=== PATIENT | male | born 1975 | race Two or more races ===

== ENCOUNTER 2020-08-22 11:03 | Outpatient (REF) | payer OTHER, SELFPAY ==
[2020-08-23 04:37] LABS: HIV AB/AG Nonreactive (Nonreactive); HIV Num 1 0.11 S/CO (0.00-0.99)
== END 2020-08-22 11:04 | disposition home or self-care (01) ==
LOC: HO.LAB 11:03
PROVIDERS: PCP Internal Medicine; Visit Provider Internal Medicine
DX: Z11.3 Encounter for screening for infections with a predominantly sexual mode of transmission (principal); Z11.4 Encounter for screening for human immunodeficiency virus [HIV]
CPT/HCPCS: 87389

== ENCOUNTER → 2020-10-29 13:09 | Outpatient (BNVA) | payer OTHER, SELFPAY | PROVIDERS: PCP Internal Medicine; Referring Provider Internal Medicine; Visit Provider Dietitian, Registered | DX: Z76.89 Persons encountering health services in other specified circumstances (principal) ==

== ENCOUNTER 2020-11-08 09:46 | Outpatient (REF) | payer OTHER, SELFPAY ==
--- NOTE | 2020-11-08 10:06 | XR_ITS ---
EXAMINATION: XR ABDOMEN COMPLETE CLINICAL INDICATION: Lower abdominal pain COMPARISON: None TECHNIQUE: 2 views of the abdomen. FINDINGS: The bowel gas pattern is normal with no evidence of ileus or obstruction. No unusual soft tissue calcifications are noted. Mild bilateral hip joint space narrowing and associated femoral acetabular marginal osteophytosis. Mild bilateral sacroiliac arthrosis. XR/XR abdomen min 2V IMPRESSION: No evidence of obstruction.
[2020-11-08 10:18] LABS: Hematocrit 47.2 % (42-52); Hemoglobin 15.2 g/dl (14.0-18.0); Mean Corpuscular HGB Conc 32.2 g/dl (31.0-36.0); Mean Corpuscular Hemoglobin 27.7 pg (27.0-33.0); Mean Corpuscular Volume 86.1 fL (80-98); Mean Platelet Volume 10.7 fL (9.4-12.4); Platelet Count 229 X10*3/uL (160-400); Red Blood Count 5.48 X10*6/uL (4.60-5.80); Red Cell Distribution Width 13.9 % (11.0-16.0); White Blood Count 7.4 X10*3/uL (4.8-10.8)
[2020-11-08 10:40] LABS: Alanine Aminotransferase 11 U/L (0-40); Albumin Level 4.3 g/dL (3.5-5.0); Alkaline Phosphatase 87 U/L (39-117); Anion Gap 10 (12-20); Aspartate Amino Transferase 13 U/L (5-37); Bilirubin Direct 0.5 mg/dL (0.0-0.5); Bilirubin Total 1.5 mg/dL (0.0-1.0); Blood Urea Nitrogen 11 mg/dL (9-16); Calcium 9.3 mg/dL (8.4-10.2); Carbon Dioxide 32 mmol/L (22-29); Chloride 102 mmol/L (96-108); Estimated Glomerular Filt Rate > 60; Glucose Random 89 mg/dL (60-115); Potassium 4.6 mmol/l (3.3-5.1); Sodium 139 mmol/L (135-145); Total Protein 7.4 g/dL (6.5-8.0)
[2020-11-08 10:58] LABS: Glucose Urine UA NEG (NEG); Leukocyte Esterase Urine NEG (NEG); Nitrite Urine NEG (NEG); PH 5.5 (5.0-8.0); Specific Gravity - Urine >= 1.030 (1.005-1.025); Urine Blood TRACE (NEG); Urine Ketones NEG (NEG); Urine Protein NEG (NEG-TRACE)
[2020-11-08 10:59] LABS: Appearance Urine HAZY; Color Urine YELLOW
[2020-11-08 11:12] LABS: RBC Urine 0-2 /HPF (0); WBC Urine 0 /HPF (0-4)
== END 2020-11-08 09:47 | disposition home or self-care (01) ==
LOC: HO.LAB 09:46
PROVIDERS: PCP Internal Medicine; Visit Provider Physician Assistant
DX: R10.30 Lower abdominal pain, unspecified (principal); I10 Essential (primary) hypertension
CPT/HCPCS: 36415; 74019; 80048; 80076; 81001; 85027

== ENCOUNTER → 2020-11-12 13:54 | Outpatient (BNVA) | payer OTHER, SELFPAY | PROVIDERS: Visit Provider Orthopaedic Surgery | DX: M17.10 Unilateral primary osteoarthritis, unspecified knee (principal); M25.462 Effusion, left knee | CPT/HCPCS: 99202 ==

== ENCOUNTER → 2021-06-27 11:07 | Outpatient (BNVA) | payer OTHER, SELFPAY | PROVIDERS: PCP Internal Medicine; Referring Provider Internal Medicine; Visit Provider Internal Medicine Gastroenterology | CPT/HCPCS: Q3014 ==

== ENCOUNTER 2021-07-31 15:19 | Outpatient (REF) | payer OTHER, SELFPAY | END 2021-07-31 15:20 | disposition home or self-care (01) | LOC: HO.LAB 15:19 | PROVIDERS: PCP Internal Medicine; Visit Provider Internal Medicine | DX: Z20.822 Contact with and (suspected) exposure to COVID-19 (principal) | CPT/HCPCS: C9803; U0003; U0005 ==

== ENCOUNTER 2021-10-31 19:04 | Outpatient (REF) | payer OTHER, SELFPAY ==
[2021-10-31 20:01] LABS: Influenza A PCR NEGATIVE (Negative); Influenza B PCR NEGATIVE (Negative); Resp Syncy Virus RNA Qual PCR NEGATIVE (Negative); SARS COV2 PCR INHOUSE POSITIVE (Negative)
== END 2021-10-31 19:05 | disposition home or self-care (01) ==
LOC: HO.LNP 19:04
PROVIDERS: Visit Provider Physician Assistant Medical
DX: Z20.822 Contact with and (suspected) exposure to COVID-19 (principal); J06.9 Acute upper respiratory infection, unspecified
CPT/HCPCS: 0241U

== ENCOUNTER 2021-11-21 09:21 | Outpatient (REF) | payer OTHER, SELFPAY ==
[2021-11-21 09:51] LABS: MANUAL DIFF FLAG NO
[2021-11-21 10:09] LABS: Basophils Percent Auto 0.3 % (0-2); Eosinophils Absolute Auto 0.2 X10*3/uL (0.0-0.4); Eosinophils Percent Auto 2.2 % (0-4); Hematocrit 44.7 % (42.0-52.0); Hemoglobin 14.6 g/dl (14.0-18.0); Imm Gran Abs Auto 0.02 X10*3/uL (0.00-0.03); Imm Gran Pct Auto 0.3 % (0.0-0.4); Lymphocytes Absolute Auto 1.7 X10*3/uL (1.2-4.9); Lymphocytes Percent Auto 24.6 % (20-40); Mean Corpuscular HGB Conc 32.7 g/dl (31.0-36.0); Mean Corpuscular Hemoglobin 27.8 pg (27.0-33.0); Monocytes Absolute Auto 0.6 X10*3/uL (0.1-1.2); Monocytes Percent Auto 9.4 % (2-11); Neutrophils Absolute Auto 4.2 x10*3/uL (2.0-8.3); Neutrophils Percent Auto 63.2 % (45-73); Platelet Count 225 X10*3/uL (160-400); Red Blood Count 5.26 X10*6/uL (4.60-5.80); Red Cell Distribution Width 14.5 % (11.0-16.0); White Blood Count 6.7 X10*3/uL (4.8-10.8)
[2021-11-21 10:18] LABS: Appearance Urine CLEAR; Color Urine YELLOW; Glucose Urine UA NEG (NEG); Leukocyte Esterase Urine NEG (NEG); Nitrite Urine NEG (NEG); PH 5.5 (5.0-8.0); Specific Gravity - Urine >= 1.030 (1.005-1.025); Urine Blood NEG (NEG); Urine Ketones NEG (NEG); Urine Protein NEG (NEG-TRACE)
[2021-11-21 10:38] LABS: Alanine Aminotransferase 24 U/L (0-40); Alkaline Phosphatase 90 U/L (39-117); Anion Gap 11 (12-20); Aspartate Amino Transferase 19 U/L (5-37); Bilirubin Total 1.1 mg/dL (0.0-1.0); Blood Urea Nitrogen 11 mg/dL (9-16); Calcium 9.4 mg/dL (8.4-10.2); Carbon Dioxide 27 mmol/L (22-29); Chloride 108 mmol/L (96-108); Cholesterol 194 mg/dL; Estimated Glomerular Filt Rate > 60; Glucose Random 96 mg/dL (60-115); HDL Cholesterol 29 mg/dL; LDL Cholesterol Calculated 113 mg/dl; Potassium 4.6 mmol/L (3.3-5.1); Sodium 141 mmol/L (135-145); Total Protein 6.9 g/dL (6.5-8.0); Triglycerides 260 mg/dL
[2021-11-21 11:01] LABS: Free T4 (Free Thyroxine) 0.92 ng/dL (0.71-1.85); Thyroid Stimulating Hormone 0.97 uIU/mL (0.32-4.0)
[2021-11-21 11:11] LABS: Bacteria Urine TRACE /LPF; Squamous Epithelial Cell Urine TRACE /LPF
[2021-11-21 11:12] LABS: RBC Urine 0 /HPF (0); WBC Urine 0-2 /HPF (0-4)
[2021-11-21 11:13] LABS: Folate 15.2 ng/mL (> or = 4.0); Vitamin B12 303 pg/mL (200-900)
== END 2021-11-21 09:22 | disposition home or self-care (01) ==
LOC: HO.LAB 09:21
PROVIDERS: PCP Internal Medicine; Visit Provider Internal Medicine
DX: R55 Syncope and collapse (principal); E78.00 Pure hypercholesterolemia, unspecified
CPT/HCPCS: 36415; 80053; 80061; 81001; 82607; 82746; 84439; 84443; 85025

== ENCOUNTER 2022-05-27 08:31 | Outpatient (REF) | payer OTHER, SELFPAY ==
[2022-05-27 08:48] LABS: MANUAL DIFF FLAG NO
[2022-05-27 08:57] LABS: Basophils Percent Auto 0.3 % (0-2); Eosinophils Absolute Auto 0.2 X10*3/uL (0.0-0.4); Eosinophils Percent Auto 3.1 % (0-4); Hematocrit 45.3 % (42.0-52.0); Hemoglobin 14.7 g/dl (14.0-18.0); Imm Gran Abs Auto 0.01 X10*3/uL (0.00-0.03); Imm Gran Pct Auto 0.1 % (0.0-0.4); Lymphocytes Absolute Auto 2.1 X10*3/uL (1.2-4.9); Lymphocytes Percent Auto 28.3 % (20-40); Mean Corpuscular HGB Conc 32.5 g/dl (31.0-36.0); Mean Corpuscular Hemoglobin 27.4 pg (27.0-33.0); Mean Corpuscular Volume 84.5 fL (80.0-98.0); Mean Platelet Volume 11.4 fL (9.4-12.4); Monocytes Absolute Auto 0.7 X10*3/uL (0.1-1.2); Monocytes Percent Auto 9.3 % (2-11); Neutrophils Absolute Auto 4.3 x10*3/uL (2.0-8.3); Neutrophils Percent Auto 58.9 % (45-73); Platelet Count 194 X10*3/uL (160-400); Red Blood Count 5.36 X10*6/uL (4.60-5.80); Red Cell Distribution Width 14.7 % (11.0-16.0); White Blood Count 7.3 X10*3/uL (4.8-10.8)
[2022-05-27 09:10] LABS: Alanine Aminotransferase 16 U/L (0-40); Albumin Level 4.3 g/dL (3.5-5.0); Alkaline Phosphatase 91 U/L (39-117); Amylase 63 U/L (28-100); Anion Gap 11 (12-20); Aspartate Amino Transferase 15 U/L (5-37); Bilirubin Total 1.1 mg/dL (0.0-1.0); Blood Urea Nitrogen 13 mg/dL (9-16); Carbon Dioxide 29 mmol/L (22-29); Chloride 107 mmol/L (96-108); Cholesterol 189 mg/dL; Estimated Glomerular Filt Rate > 60; Glucose Random 98 mg/dL (60-115); HDL Cholesterol 33 mg/dL; LDL Cholesterol Calculated 106 mg/dl; Lipase 12 U/L (8-78); Potassium 4.6 mmol/L (3.3-5.1); Sodium 142 mmol/L (135-145); Total Protein 7.2 g/dL (6.5-8.0); Triglycerides 254 mg/dL
[2022-05-27 09:29] LABS: Free T4 (Free Thyroxine) 1.02 ng/dL (0.71-1.85); Thyroid Stimulating Hormone 1.94 uIU/mL (0.32-4.0)
[2022-05-27 09:57] LABS: Folate 15.8 ng/mL (> or = 4.0)
[2022-05-27 10:41] LABS: Vitamin B12 281 pg/mL (200-900)
== END 2022-05-27 08:32 | disposition home or self-care (01) ==
LOC: HO.LAB 08:31
PROVIDERS: PCP Internal Medicine; Visit Provider Internal Medicine
DX: E78.2 Mixed hyperlipidemia (principal); E78.00 Pure hypercholesterolemia, unspecified
CPT/HCPCS: 36415; 80053; 80061; 82150; 82607; 82746; 83690; 84439; 84443; 85025

== ENCOUNTER → 2022-06-30 10:48 | Outpatient (BNVA) | payer OTHER, SELFPAY | PROVIDERS: PCP Internal Medicine; Visit Provider Internal Medicine Gastroenterology | DX: K57.90 Diverticulosis of intestine, part unspecified, without perforation or abscess without bleeding (principal); R79.89 Other specified abnormal findings of blood chemistry; R10.30 Lower abdominal pain, unspecified; R10.9 Unspecified abdominal pain; R17 Unspecified jaundice; Z87.19 Personal history of other diseases of the digestive system | CPT/HCPCS: 99212 ==

== ENCOUNTER 2022-07-24 09:25 | Outpatient (REF) | payer OTHER, SELFPAY ==
--- NOTE | ~2022-07-24 | US_ITS ---
EXAMINATION: US ABDOMEN COMPLETE CLINICAL INFORMATION: Elevated LFTs. COMPARISON: X-ray abdomen 11/08/2020. CT abdomen and pelvis 11/01/2019. Ultrasound abdomen 10/12/2019 and 03/15/2018. TECHNIQUE: Real-time imaging of the abdominal viscera. Technically difficult study secondary to bowel gas and body habitus. FINDINGS: PANCREAS: Largely obscured by overlapping bowel gas. ABDOMINAL AORTA: The proximal, mid, and distal segments are normal in caliber. INFERIOR VENA CAVA: Visualized portions are normal. LIVER: Imaging limited by overlapping bowel gas. The liver is normal in size. The liver contour is normal. There is diffuse increased liver parenchymal echogenicity. No focal hepatic lesion. There is no intrahepatic biliary duct dilatation seen. GALLBLADDER: Surgically absent. COMMON BILE DUCT: Normal in caliber measuring 0.3 cm in diameter. RIGHT KIDNEY: Normal. No hydronephrosis. No renal calculi or focal parenchymal lesions. The kidney measures 12.1 cm in maximum dimension. LEFT KIDNEY: Normal. No hydronephrosis. No renal calculi or focal parenchymal lesions. The kidney measures 10.8 cm in maximum dimension. SPLEEN: No focal finding. The spleen measures 13.5 cm in maximum dimension. FREE FLUID: None. US/US abdomen complete IMPRESSION: 1. There is generalized increase in hepatic echotexture, consistent with fatty infiltration or hepatocellular disease. Please correlate clinically. No focal hepatic mass or intrahepatic biliary dilatation is seen. 2. There is mild splenomegaly. 3. The gallbladder is surgically absent. 4. Technically limited ultrasound examination, in particular of the pancreas.
== END 2022-07-24 09:26 | disposition home or self-care (01) ==
LOC: HO.US 09:25
PROVIDERS: Visit Provider Internal Medicine
DX: R10.9 Unspecified abdominal pain (principal); R79.89 Other specified abnormal findings of blood chemistry
CPT/HCPCS: 76700

== ENCOUNTER → 2022-08-18 10:59 | Outpatient (BNVA) | payer OTHER, SELFPAY | PROVIDERS: PCP Internal Medicine; Visit Provider Dietitian, Registered | DX: E78.00 Pure hypercholesterolemia, unspecified (principal); E66.9 Obesity, unspecified | CPT/HCPCS: 97803 ==

== ENCOUNTER → 2022-09-04 12:59 | Outpatient (BNVA) | payer OTHER, SELFPAY | PROVIDERS: PCP Internal Medicine; Visit Provider Internal Medicine Gastroenterology | DX: K76.0 Fatty (change of) liver, not elsewhere classified (principal); R17 Unspecified jaundice; K57.90 Diverticulosis of intestine, part unspecified, without perforation or abscess without bleeding; R10.84 Generalized abdominal pain; K59.09 Other constipation; Z87.19 Personal history of other diseases of the digestive system; Z80.0 Family history of malignant neoplasm of digestive organs | CPT/HCPCS: 99212 ==

== ENCOUNTER 2022-09-05 09:47 | Outpatient (REF) | payer OTHER, SELFPAY ==
[2022-09-05 10:34] LABS: Hematocrit 43.9 % (42.0-52.0); Hemoglobin 14.6 g/dl (14.0-18.0); Mean Corpuscular HGB Conc 33.3 g/dl (31.0-36.0); Mean Corpuscular Hemoglobin 28.2 pg (27.0-33.0); Mean Corpuscular Volume 84.7 fL (80.0-98.0); Mean Platelet Volume 11.1 fL (9.4-12.4); Platelet Count 204 X10*3/uL (160-400); Red Blood Count 5.18 X10*6/uL (4.60-5.80); Red Cell Distribution Width 14.5 % (11.0-16.0); White Blood Count 5.2 X10*3/uL (4.8-10.8)
[2022-09-05 10:51] LABS: INTERNATIONAL NORM RATIO 1.1 (0.9-1.1); Prothrombin Time 12.2 SEC (10.0-13.1)
[2022-09-05 11:24] LABS: Blood Urea Nitrogen 9 mg/dL (9-16); Estimated Glomerular Filt Rate > 60
[2022-09-12 00:26] LABS: FIB-ALT 16 U/L (9-46); FIB-Alpha-2-Macroglobulin 147 mg/dL (106-279); FIB-Apolipoprotein A1 114 mg/dL (94-176); FIB-GGT 8 U/L (3-95); FIB-Haptoglobin 146 mg/dL (43-212); FIB-Total Bilirubin 1.1 mg/dL (0.2-1.2); Liver Fibrosis Score 0.16; Liver Fibrosis Stage F0; Nec Inflam Act Grade A0; Nec Inflam Act Score 0.05
== END 2022-09-05 09:48 | disposition home or self-care (01) ==
LOC: HO.LAB 09:47
PROVIDERS: PCP Internal Medicine; Visit Provider Internal Medicine Gastroenterology
DX: R10.84 Generalized abdominal pain (principal); K76.0 Fatty (change of) liver, not elsewhere classified; Z80.0 Family history of malignant neoplasm of digestive organs
CPT/HCPCS: 36415; 81596; 82565; 84520; 85027; 85610

== ENCOUNTER 2022-10-08 13:51 | Outpatient (REF) | payer OTHER, SELFPAY ==
--- NOTE | ~2022-10-08 | CT_ITS ---
EXAMINATION: CT ABDOMEN AND PELVIS WITH CONTRAST CLINICAL INFORMATION: Generalized abdominal pain COMPARISON: Abdominal ultrasound July 24, [address] abdomen pelvis November 01, 2019 TECHNIQUE: Multidetector volumetric images were obtained from the superior aspect of the liver through the pubic symphysis following administration 85 mL of Omnipaque 350 intravenous contrast. Sagittal and coronal reformatted images were obtained on the technologist's workstation. This CT examination was performed using dose optimization techniques as appropriate, variously including the following: *Automated exposure control *Adjustment of mA and/or kV according to patient size (this includes techniques or standardized protocols for targeted exams where dose is matched to indication/reason for exam; i.e. extremities or head) *Use of iterative reconstruction technique DLP: 1022 mGy-cm FINDINGS: Visualized lung bases are well aerated. The liver demonstrates normal size, contour and attenuation. The gallbladder is surgically absent. The pancreas, spleen and adrenal glands are unremarkable. Symmetrically enhancing kidneys. No hydronephrosis of either kidney. Subcentimeter hypodense focus off the lower pole of the right kidney is stable but too small to accurately characterize. Normal caliber loops of small and large bowel. Normal appendix. Mild colonic diverticulosis without CT evidence to suggest active diverticulitis. Normal caliber abdominal aorta. No retroperitoneal lymphadenopathy. The bladder is normal in appearance. The prostate gland is normal in size. No gross free pelvic fluid. No acute osseous abnormality. CT/CT abdomen pelvis w IV con IMPRESSION: 1. No CT evidence for acute abnormality within the abdomen or pelvis. 2. Mild colonic diverticulosis without CT evidence to suggest active diverticulitis. Fleischner guidelines were followed.
[2022-10-08] MEDS: iohexoL 350 MG/ML 100 ML INFUS..BTL IV (17:06)
[2022-10-08] MEDS: Barium Sulfate Oral (Berry) 450 ML ORAL.SUSP 900 ML PO (17:07)
== END 2022-10-08 13:52 | disposition home or self-care (01) ==
LOC: HO.CT 13:51
PROVIDERS: PCP Internal Medicine; Visit Provider Internal Medicine Gastroenterology
DX: R10.84 Generalized abdominal pain (principal); Z80.0 Family history of malignant neoplasm of digestive organs
CPT/HCPCS: 74177; Q9967

== ENCOUNTER → 2023-01-01 10:32 | Outpatient (BNVA) | payer OTHER, SELFPAY | PROVIDERS: PCP Internal Medicine; Visit Provider Internal Medicine Gastroenterology | DX: K57.90 Diverticulosis of intestine, part unspecified, without perforation or abscess without bleeding (principal); R17 Unspecified jaundice; R79.89 Other specified abnormal findings of blood chemistry; R10.13 Epigastric pain; R10.30 Lower abdominal pain, unspecified; K76.0 Fatty (change of) liver, not elsewhere classified | CPT/HCPCS: 99212 ==

== ENCOUNTER 2023-01-06 11:48 | Outpatient (REF) | payer OTHER, SELFPAY ==
[2023-01-06 12:32] LABS: Hemoglobin 13.8 g/dl (14.0-18.0); Mean Corpuscular HGB Conc 32.9 g/dl (31.0-36.0); Mean Corpuscular Hemoglobin 28.2 pg (27.0-33.0); Mean Corpuscular Volume 85.9 fL (80.0-98.0); Mean Platelet Volume 11.1 fL (9.4-12.4); Platelet Count 215 X10*3/uL (160-400); Red Blood Count 4.89 X10*6/uL (4.60-5.80); Red Cell Distribution Width 15.2 % (11.0-16.0); White Blood Count 6.6 X10*3/uL (4.8-10.8)
[2023-01-06 13:37] LABS: Alanine Aminotransferase 14 U/L (0-40); Albumin Level 3.9 g/dL (3.5-5.0); Alkaline Phosphatase 92 U/L (39-117); Aspartate Amino Transferase 16 U/L (5-37); Bilirubin Direct 0.3 mg/dL (0.0-0.5); Bilirubin Total 1.1 mg/dL (0.0-1.0); C Reactive Protein 0.17 mg/dL (< or = 0.50); Lipase 16 U/L (8-78); Total Protein 6.5 g/dL (6.5-8.0)
== END 2023-01-06 11:49 | disposition home or self-care (01) ==
LOC: HO.LAB 11:48
PROVIDERS: PCP Internal Medicine; Visit Provider Internal Medicine Gastroenterology
DX: R79.89 Other specified abnormal findings of blood chemistry (principal)
CPT/HCPCS: 36415; 80076; 83690; 85027; 86140

== ENCOUNTER → 2023-02-13 09:19 | Outpatient (BNVA) | payer OTHER, SELFPAY | PROVIDERS: PCP Internal Medicine; Visit Provider Dietitian, Registered | DX: E78.00 Pure hypercholesterolemia, unspecified (principal); E66.9 Obesity, unspecified; Z68.31 Body mass index [BMI] 31.0-31.9, adult; Z71.3 Dietary counseling and surveillance | CPT/HCPCS: 97803 ==

== ENCOUNTER 2023-06-10 11:00 | Outpatient (RCR) | payer OTHER, SELFPAY ==
--- NOTE | 2023-05-22 11:50 | MHC.PT.EP ---
[facility] Office [place] Office [place] Office [address] Leobardo Cruz [address] [phone] F: [phone] F: [phone] F: [phone] F: [phone] Physical Therapy Plan of Care Date of Evaluation: Date of Surgery: Diagnosis: This is a 48 yo male presenting to skilled PT with a script for pain in R lower leg and foot. Assessment: This is a 48 yo male presenting to skilled PT with a script for pain in R lower leg and foot. Patient presented to the walk-in at the beginning of April with pain in the right foot and and gastroc ongoing then for 2-3 weeks. He also noted pain starting in the left side as well. He notes rest makes it better and is worse at the end of the day after being on his feet. Denies new activities however did go to [place] and increased his walking which was when he noticed an increase in symptoms. Today he presents reporting that his pain has been improving since then. His pain is located at the heel mainly (he was having anterior lower leg symptoms before). Pain is described as stabbing and increases with walking but can be at rest as well. His pain still increases throughout the day and is worse at night. He has a history of lumbar issues however states that this feels different. Assessment reveals pain that ranges from a 4-8/10. Patient demos decreased BLE ROM and strength, impaired gait pattern with antalgic gait, increased toe extension, B hip ER and lateral sway, self reported decreased balance due to LE, TTP at gastroc and PF and decreased functional tolerance for wbing activites, transfers and ADLs. Based on functional limitations, impaired QOL and pain tolerance patient is a good candidate for skilled PT 2x/wk for 4wks. Frequency and Duration: The patient will be seen 2x/wk for 4 wks Short Term Goals: (in 2 weeks) I in HEP Improve gastroc length by at least 5 degs Demo good understanding of self tissue release at home and be compliant [facility] Goals: (in 4 wks) Improve pain to no more than 2/10 Improve gastroc length equal B Report no pain with walking Demo normal gait on stairs with reciprocal gait and no pain Improve Lefs by 10 points Treatment Plan: Modalities to reduce pain, spasms and effusion. Manual therapy to restore motion and function. Therapeutic exercise to improve strength and flexibility. Neuromuscular re-education for posture and balance. Therapeutic activities to return to functional activities of daily living. Electronically signed by: Carolynn Rivera PT Please sign and return to therapist. Thank you for your referral.
--- NOTE | 2023-06-19 11:56 | MHC.PT.DC ---
[facility] [place] Office [place] Office [place] Office [address] Leobardo Cruz [address] [phone] F: [phone] F: [phone] F: [phone] F: [phone] Physical Therapy Discharge Report Diagnosis: This is a 48 yo male presenting to skilled PT with a script for pain in R lower leg and foot. Date of Surgery: Date of Evaluation: 05/22/23 Date of Discharge: 06/19/23 Treatments to Date: 5 Cancellations to Date: 0 No Shows to Date: 0 Discharge Status: Achieved Goals Improved Function Independent with HEP Patient Elected to Stop Discharge Summary: Patient came to 5 visits of PT. He has a good HEP to continue on his own and I also educated him on different referral options for mild residual soreness. No pain was reported throughout the last session, good gait pattern noted. He called to self DC as he feels much better and is ready for management on his own. Electronically signed by: Carolynn Rivera, PT Please sign and return to therapist. Thank you for your referral.
== END 2023-06-19 11:56 | disposition home or self-care (01) ==
LOC: HO.PTCHIC 11:00
PROVIDERS: PCP Internal Medicine; Visit Provider Physician Assistant
DX: M79.661 Pain in right lower leg (principal); M79.671 Pain in right foot
CPT/HCPCS: 97110; 97140; 97162

== ENCOUNTER 2023-07-10 11:56 | Outpatient (AMB) | payer OTHER, SELFPAY ==
[2023-07-10 12:05] VITALS: BP 104/65; PULSE 69; BMI 31.3
--- NOTE | 2023-07-10 12:05 | MHC.OFFVIS ---
Intake Vital Signs 07/10/23 12:05 Height 5 ft 9 in Weight 212 lb 1.355 oz BMI 31.3 BP 104/65 Blood Pressure Location Rt brachial Position Sitting Pulse 69 Intake Visit Reasons: 6 month follow up Intake Note: Patient follow up for 6 months follow up of diverticulosis. CC: Patient reports he went to [facility] on 07/06 with RUQ abdominal pain. He states RUQ abdominal pain is constant and also reports constipation. Patient states he has occasional abdominal burning and itching. Supervisor Treating And Pumping Required: No Accompanied by: Self / Same As Patient Allergies No Known Allergies Allergy (Verified 07/10/23 12:06) Medication List - Last Reconciled 07/10/23 by Brennen Godfrey MD cyclobenzaprine 5 mg PO BEDTIME PRN naproxen 500 mg PO BID 15 days omega-3 fatty acids 1,000 mg PO DAILY vitamin E (dl, acetate) 180 mg PO DAILY HPI 6 month follow up HPI Details GI CLINIC visit for this 48 YM followed in GI for LLQ pain and diverticulosis. ?CHRONIC? ILLNESSES:?obesity, chronic back pain, on disability, hypercholesterolemia,? carpal tunnal syndrome - bilateral, fatty liver, renal calculus 03/2018,? diverticulitis - 2014, vitamin D deficiency, HX of constipation, DDD (? degenerative disc disease ), Allergic rhinitis, vision impairment ?[facility] reviewed, Cr 0.84. Elevated LFTs with total bilirubin of? 1.1, AST 15, ALT 12, alkaline phosphatase 98.? 06/2019 Hepatitis a B? and C serologies were negative. Repeat LFTs on 11/16/2019 were normal except? total bilirubin of 1.1.? Serologies for celiac sprue were negative in? June 2019 ?IMAGING STUDIES:?10/08/[address] SCAN SHOWED: 1.? No CT evidence for acute abnormality within the abdomen or pelvis. 2.? Mild colonic diverticulosis without CT evidence to suggest active diverticulitis. 07/2022 ABD US SHOWED: 1. There is generalized increase in hepatic echotexture, consistent with fatty infiltration or hepatocellular disease. Please correlate clinically. No focal hepatic mass or intrahepatic biliary dilatation is seen. ?2. There is mild splenomegaly. ?3. The gallbladder is surgically absent. ?4. Technically limited ultrasound examination, in particular of the pancreas. 11/01/[address] scan showed? Diverticulosis. No evidence of diverticulitis. Stable probable small right renal? cyst. ENDOSCOPIC STUDIES:? 08/2019 COLONOSCOPY SHOWED: No polyps were detected. Random biopsies were obtained to check for microscopic colitis - NORMAL. Moderate to severe diverticulosis seen in the left colon Moderate hemorrhoids on retroflexed exam. Plan:? Repeat Colonoscopy interval based on path results ? in 3-5 years if polyps are adenomatous and 10 years if polyps are hyperplastic. TODAY'S VISIT CC: Patient reports he went to [facility] on 07/06 with RUQ abdominal pain. He states RUQ abdominal pain is constant and also reports constipation. Patient states he has occasional abdominal burning and itching. Offered pain pills for pain and patient declined. Continues to have RUQ pain Pt had Lasagnia before the pain started. He was taking the powder with mild improvement - not significant Minimal improvement in pain after he has a bowel movement. Abd CT results reviewed. Continues to have intermittent rt sided abdominal pain/weird feeling in the abdomen - sometimes radiates to the left side. Feels better when he empties himself. Has not tried taking the Miralax yet. ? ? abd pain is associated with ?intake of fried foods ? Notes?generalized abdominal pain. Intermittent and sometimes can last a whole day Can have lower abdominal cramping. Changed his diet and avoiding greasy and fried foods. More constipation at present - has a BM once a day with mild straining. Had diarrhea a few weeks ago. Drinking herbal teas Has been loosing wt due to a change in his diet. Started taking Vitamin E for Fatty liver on advice of airways operations specialist. Mom recently of pancreatic cancer at age 68 yrs. PAST VISIT: Lab results reviewed with the pt. Scheduled for abd US on 07/24/22. Denies heartburn or dysphagia. Denies frequent abdominal pain - mostly if he takes any foods with seeds Complains of constipation - resolves when he takes oatmeal Mom with metastatic pancreatic cancer end of May at age 68 yrs. He took car of her Mom when she was ill Denies known FH of pancreatic cancer, colon polyps or GI malignancy Did not get the COVID vaccine yet and planning to get it ? Not against it. Lab results reviewed - LFTs normal except bilirubing of 1.5 ? Gained a few lbs - weighs 215 lbs (lost 10 lbs over the past 1.5 yrs) ?Doing pretty good. ? Notes? intermittent mild LLQ pain which comes and comes related to what he eats a few? times a week. ?Sometimes can have abd pain with? oatmeal. ?Trying to eat more vegetables which can cause gas - does not? eat grease. ?BM vary between constipation, normal BM and loose? stools. ?Gets diarrhea and abdominal pain if he takes a fibre? supplement. ?weight fluctuates between 218 to 219? lbs. ?Admitted to [facility] [place] [place] with fever, chills and a dark? urine. ?PAST GI HISTORY BY REVIEW OF MEDICAL RECORDS: ?Last? seen on 09/02/20: ?Assessments ?1. Diverticulosis - K57.90? (Primary) ?2. LLQ abdominal pain - R10.32 ?3. Colon cancer? screening - Z12.11 ?44-year-old male with obesity, chronic back pain,? on disability, hypercholesterolemia, carpal tunnal syndrome - bilateral, fatty? liver, renal calculus 03/2018, diverticulitis - 2014, vitamin D deficiency, HX of? constipation, DDD ( degenerative disc disease ), Allergic rhinitis, vision? impairment. Patient was referred to the GI clinic for evaluation of generalized? abdominal pain. He was diagnosed with the acute diverticulitis a few months ago? and was treated with antibiotics. Patient also complains of constipation? alternating with diarrhea with urgency. His symptoms are suggestive of IBS with? diarrhea and constipation. A serologies for celiac sprue were? negative ?Patient was advised to continue using a fiber supplement 1-2? times daily. ?08/20 Colonoscopy showed diverticulosis and hemorrhoids? and no polyps were detected. Random biopsies obtained from the colon were? normal. Of note past colonoscopy in 09/[address] Shaw showed? diverticulosis and hemorrhoids. ?Treatment ?1.? Diverticulosis ?Notes: Patient education: High-fiber diet (Beyond the? Basics). ?2. Colon cancer screening ?Notes: 08/2019? colonoscopy showed diverticulosis and hemorrhoids and no polyps were detected.? Patient denies note family history of colon polyps or cancer. Repeat colonoscopy? is advised in 10 years. ?. ?Follow Up ?3- 4 Months? (Reason: FU of LLQ pain and diverticulosis PFSH Medical History Low back pain Dyspepsia Generalized abdominal pain Elevated bilirubin Mixed hyperlipidemia Right-sided abdominal pain of unknown etiology Syncope COVID-19 vaccine dose not administered Viral illness Elevated LFTs H/O diverticulitis of colon Lower abdominal pain Erectile dysfunction Lumbar degenerative disc disease Carpal tunnel syndrome Hypercholesterolemia Fatty liver Diverticular disease Renal calculus Obesity (BMI 30-39.9) Vitamin D deficiency Sexually transmitted disease exposure Surgical History History of cholecystectomy Family History Father No problems noted. Mother Pancreatic cancer Social History Housing: Apartment Alcohol intake: never Patient Tobacco Use Status: Never used Tobacco e-Cigarette/Vaping Use: Never Used Second Hand Smoke Exposure: No Current occupational status: unemployed Cognitive needs: No Hearing needs: No Vision needs: Yes Review of Systems Const All systems reviewed & are unremarkable except as noted in HPI and below Physical Exam Vital Signs: Last Vital Signs Pulse 69 07/10/23 12:05 BP 104/65 07/10/23 12:05 BMI result Body Mass Index 31.3 Const General: healthy appearing and no acute distress Nutritional Appearance: obese Orientation/consciousness: patient oriented x3 Limitations: no limitations HEENT Head: Yes normal to inspection Ears: hearing grossly normal bilaterally Eyes Sclerae: sclerae normal Pupils: Equal, round and reactive pupils present Neck Neck: Yes normal visual inspection Chest Chest palpation & inspection: normal inspection of the chest Resp Effort & Inspection: normal respiratory effort Auscultation: clear to auscultation bilaterally Cardio Palpation: normal PMI Rate: regular rate Rhythm: regular rhythm Heart sounds: S1 normal heart sound present, S2 normal heart sound present and no murmurs GI Palpation (GI): Soft to palpation, nontender and No hepatosplenomegaly present Auscultation: normal bowel sounds Rectal Exam - Male: Yes deferred Skin General skin exam: no rashes or lesions noted Neuro General: patient oriented x3, gait normal and moves all extremities Cranial nerves: Yes Equal, round and reactive pupils present Psych Appearance: grossly normal Mental Status: mental status grossly normal Assessment & Plan Assessment & Plan (1) Diverticular disease: Comment: Diverticulitis May 2019 Code(s): K57.90 - Diverticulosis of intestine, part unspecified, without perforation or abscess without bleeding (2) Fatty liver: Code(s): K76.0 - Fatty (change of) liver, not elsewhere classified (3) Upper abdominal pain: Code(s): R10.10 - Upper abdominal pain, unspecified Plan 48 year-old male with obesity, chronic back pain, on disability,? hypercholesterolemia, bilateral carpal tunnal syndromel, fatty liver, renal? calculus 03/2018, diverticulitis - 2014, vitamin D deficiency, HX of? constipation, DDD ( degenerative disc disease ), Allergic rhinitis, vision? impairment. Patient was referred to the GI clinic for evaluation of generalized? abdominal pain. He was diagnosed with the acute diverticulitis and was treated with antibiotics. Patient also complains of constipation? alternating with diarrhea with urgency. His symptoms are suggestive of IBS with? diarrhea and constipation. Serologies for celiac sprue were? negative Patient was advised to continue using a fiber supplement 1-2 times? daily. Patient was seen at [facility] [place] [place] ED in 10/20 with elevated LFTs. Hepatitis a? B and C serologies were negative. Liver Fibrosis Scoreof 0.16, Liver Fibosis Stage F0 No biliary obstruction was noted on abdominal? ultrasound. LFTs were normal when rechecked on November 16 (except isolated elevation of TB). Increase in LFTs may? be related to a viral hepatitis (EBV or CMV), drug induced hepatitis or? transient biliary obstruction due to biliary sludge which resolved? spontaneously. Isolated elevation of Total Bilirubin (predominantly indirect) likely due to Gilbert's syndrome.? 10/[address] scan was negative except for diverticulosis 07/10/23 patient was advised to start omeprazole and schedule an upper endoscopy for evaluation of upper abdominal pain (scheduled on 10/09/23). FU appointment in 3 months Medications: New omeprazole 20 mg PO DAILY 30 caps 3RF 30 days R10.10 - Upper abdominal pain, unspecified Coding Level of Care Code Est Pt Level 4 (83399) Diagnoses Diverticular disease K57.90 Fatty liver K76.0 Upper abdominal pain R10.10 Time Spent (min) 21
== END 2023-07-10 12:49 | disposition home or self-care (01) ==
PROVIDERS: Visit Provider Internal Medicine Gastroenterology
DX: K57.90 Diverticulosis of intestine, part unspecified, without perforation or abscess without bleeding (principal); K76.0 Fatty (change of) liver, not elsewhere classified; R10.10 Upper abdominal pain, unspecified
CPT/HCPCS: 99214

== ENCOUNTER → 2023-07-10 11:56 | Outpatient (BNVA) | payer OTHER, SELFPAY | PROVIDERS: Visit Provider Internal Medicine Gastroenterology | DX: K57.90 Diverticulosis of intestine, part unspecified, without perforation or abscess without bleeding (principal); K76.0 Fatty (change of) liver, not elsewhere classified; R10.10 Upper abdominal pain, unspecified | CPT/HCPCS: 99212 ==

== ENCOUNTER 2024-05-20 15:55 | Outpatient (AMB) | payer OTHER, SELFPAY ==
--- NOTE | 2024-05-20 16:01 | MHC.OFFWIV ---
Intake Vital Signs 05/20/24 16:03 Height 5 ft 9 in Weight 215 lb BMI 31.7 BP 118/80 Blood Pressure Location Lt brachial Position Sitting Pulse 67 Pulse Source Pulse Oximeter Temp 98.5 F Temp Source Oral Pulse Oximetry (%) 99 Oxygen Delivery Method Room Air Intake Visit Reasons: Ep AB pain Intake Note: Pt is here c/o abdominal pain. Started about a month ago. Comes and goes intermittently. Mostly low center abdomen. Patient Tobacco Use Status: Never used Tobacco Allergies No Known Allergies Allergy (Verified 05/20/24 16:02) Do you need a note to return to daycare/school/sports/work: No HPI HPI Comments History of Present Illness Details Patient is a 49-year-old male with a past medical history of diverticulosis complaining of lower abdominal pain and constipation. He states it has been happening over the past month on an off, he states it is not bad today but today is the day he had time to come to the walk-in clinic. He states he has tried taking his dad's Metamucil. He has taken fiber pills which seems to help as well. He describes the pain as a sharp shooting pain across his lower abdomen. He denies any fevers or bloody or black stools. He states he did have a colonoscopy and it showed the diverticulosis. He states he used to have diarrhea but then he had his gallbladder out his diarrhea has been fine but he has been getting constipated recently. [facility] Medical History Low back pain Dyspepsia Generalized abdominal pain Elevated bilirubin Mixed hyperlipidemia Right-sided abdominal pain of unknown etiology Syncope COVID-19 vaccine dose not administered Viral illness Elevated LFTs H/O diverticulitis of colon Lower abdominal pain Erectile dysfunction Lumbar degenerative disc disease Carpal tunnel syndrome Hypercholesterolemia Fatty liver Diverticular disease Renal calculus Obesity (BMI 30-39.9) Vitamin D deficiency Sexually transmitted disease exposure Surgical History History of cholecystectomy Family History Father No problems noted. Mother Pancreatic cancer Social History Housing: Apartment Alcohol intake: never Patient Tobacco Use Status: Never used Tobacco e-Cigarette/Vaping Use: Never Used Second Hand Smoke Exposure: No Current occupational status: unemployed Cognitive needs: No Hearing needs: No Vision needs: Yes Review of Systems Const All systems reviewed & are unremarkable except as noted in HPI and below Physical Exam Vital Signs: BMI result Body Mass Index 31.7 Const General: cooperative, healthy appearing, comfortable, no acute distress and well developed Orientation/consciousness: patient oriented x3 Limitations: no limitations HEENT Head: Yes normal to inspection Eyes General: appearance normal, both eyes and all related structures Neck Neck: Yes normal visual inspection and Yes full ROM Resp Effort & Inspection: normal respiratory effort and able to speak in complete sentences GI Inspection: Yes normal to inspection Palpation (GI): Soft to palpation, nontender, No hepatosplenomegaly present and No Rebound tenderness present Auscultation: normal bowel sounds Skin General skin exam: no rashes or lesions noted Neuro General: patient oriented x3 Extrem General: Yes normal to inspection Results AMB Urinalysis, Automated UA Leukoctes 0 Michael/uL Last Edit by Guanaco Jiang CMA on 05/20/24 16:18 UA Nitrite Negative Last Edit by Guanaco Jiang CMA on 05/20/24 16:18 UA Urobilinogen 0.2 mg/dL Last Edit by Guanaco Jiang CMA on 05/20/24 16:18 UA Protein 0 mg/dL Last Edit by Guanaco Jiang CMA on 05/20/24 16:18 UA pH 6.0 Last Edit by Guanaco Jiang CMA on 05/20/24 16:18 UA Blood 0 Nam/uL Last Edit by Guanaco Jiang CMA on 05/20/24 16:18 UA Specific [place] 1.030 Last Edit by Guanaco Jiang CMA on 05/20/24 16:18 UA Ketone Negative Last Edit by Guanaco Jiang CMA on 05/20/24 16:18 UA Bilirubin 0 mg/dL Last Edit by Guanaco Jiang CMA on 05/20/24 16:18 UA Glucose 0 mg/dL Last Edit by Guanaco Jiang CMA on 05/20/24 16:18 Assessment & Plan Assessment & Plan (1) Constipation: Code(s): K59.00 - Constipation, unspecified Qualifiers: Constipation type: unspecified constipation type Qualified Code(s): K59.00 - Constipation, unspecified Plan: Likely constipation and gas. Recommended patient increase his fiber intake, increase his water intake. Recommended he continue using Mucinex as needed. He could also add in some simethicone or Gas-X when he has the pain. Gave him a few samples of Mucinex and recommended he follow up with his PCP if no resolution in symptoms after following this advice. Gave him red flag warning signs and when to go to the emergency department and explained the difference between diverticulitis and appendicitis, very low suspicion for either at this time. Plan see above Coding Level of Care Code Est Pt Level 3 (56475) Diagnoses Constipation, unspecified constipation type K59.00 Constipation type: unspecified constipation type
[2024-05-20 16:03] VITALS: BP 118/80; PULSE 67; TEMP 36.9; O2SAT 99; BMI 31.7
== END 2024-05-20 16:28 | disposition home or self-care (01) ==
PROVIDERS: PCP Internal Medicine; Visit Provider Physician Assistant
DX: Z13.9 Encounter for screening, unspecified (principal); K59.00 Constipation, unspecified
CPT/HCPCS: 81003; 99213

== ENCOUNTER 2024-11-28 15:48 | Emergency (ER) | payer OTHER, SELFPAY ==
--- NOTE | ~2024-11-28 | XR_ITS ---
CLINICAL HISTORY: pain 1 view abdomen Comparison: None Findings: No significant bowel distention demonstrated. No significant increased stool noted. No free air. No abnormal calcification. Surgical clips right upper quadrant. No acute bony abnormality. Impression: No significant abnormalities. This document has been electronically signed by: Brian Bhatia MD on 11/28/2024 20:13:17
[2024-11-28 16:05] VITALS: BP 114/70; PULSE 84; RESP 16; TEMP 36.9; O2SAT 97; BMI 23.1
--- NOTE | 2024-11-28 16:19 | ECG_ITS ---
Test Reason : CHEST PAIN Blood Pressure : */* mmHG Vent. Rate : 72 BPM Atrial Rate : 72 BPM P-R Int : 172 ms QRS Dur : 90 ms QT Int : 344 ms P-R-T Axes : 40 43 34 degrees QTcB Int : 376 ms Normal sinus rhythm Normal ECG When compared with ECG of 12-Oct-2019 10:16, No significant change was found Referred By: Generic ED Physician Electronically Signed By: DENISE GARZA
[2024-11-28 17:31] LABS: Appearance Urine Clear; Color Urine Dark Yellow; Glucose Urine UA Negative (Negative); Leukocyte Esterase Urine Negative (Negative); Nitrite Urine Negative (Negative); PH 5.5 (5.0-9.0); Specific Gravity - Urine >= 1.030 (1.005-1.025); UMIC TRIGGER UACC YES; Urine Blood Negative (Negative); Urine Ketones 40 mg/dL (Negative); Urine Protein 30 (1+) mg/dL (Neg-Trace)
[2024-11-28 17:33] LABS: Bacteria Urine None Seen (None Seen); Hyaline Casts Urine 0-2 /LPF (0-2); RBC Urine 0-2 /HPF (0-2); Squamous Epithelial Cell Urine 0-2 /HPF (0-2); WBC Urine 0-5 /HPF (0-5)
[2024-11-28 17:36] LABS: Basophils Percent Auto 0.1 % (0-2); Eosinophils Percent Auto 0.1 % (0-4); Hematocrit 50.5 % (42.0-52.0); Hemoglobin 16.9 g/dl (14.0-18.0); Imm Gran Abs Auto 0.05 X10*3/uL (0.00-0.03); Imm Gran Pct Auto 0.4 % (0.0-0.4); Lymphocytes Absolute Auto 0.2 X10*3/uL (1.2-4.9); Lymphocytes Percent Auto 1.5 % (20-40); MANUAL DIFF FLAG SCAN; Mean Corpuscular HGB Conc 33.5 g/dl (31.0-36.0); Mean Corpuscular Hemoglobin 28.3 pg (27.0-33.0); Mean Corpuscular Volume 84.6 fL (80.0-98.0); Monocytes Absolute Auto 0.3 X10*3/uL (0.1-1.2); Monocytes Percent Auto 2.1 % (2-11); Neutrophils Percent Auto 95.8 % (45-73); Platelet Count 220 X10*3/uL (160-400); Red Blood Count 5.97 X10*6/uL (4.60-5.80); Red Cell Distribution Width 14.6 % (11.0-16.0); SCAN SMEAR FLAG 1; White Blood Count 13.6 X10*3/uL (4.8-10.8)
[2024-11-28 17:37] LABS: Alanine Aminotransferase 26 U/L (0-40); Albumin Level 4.8 g/dL (3.5-5.0); Alkaline Phosphatase 118 U/L (39-117); Anion Gap 11 (12-20); Aspartate Amino Transferase 26 U/L (5-37); Bilirubin Total 1.6 mg/dL (0.0-1.0); Blood Urea Nitrogen 18 mg/dL (9-16); Calcium 10.1 mg/dL (8.4-10.2); Carbon Dioxide 26 mmol/L (22-29); Chloride 109 mmol/L (96-108); Creatinine Clr Calc Pharmacy 111.9; Estimated Glomerular Filt Rate > 60; Glucose Random 129 mg/dL (60-115); Potassium 4.5 mmol/L (3.3-5.1); Sodium 141 mmol/L (135-145); Total Protein 8.9 g/dL (6.5-8.0)
[2024-11-28 17:46] LABS: Troponin-I High Sensitivity < 2.7 ng/L (<3.5-35.0)
--- NOTE | 2024-11-28 17:57 | ED_ITS ---
HPI - Chest Pain General Chief Complaint: Chest Pain Stated Complaint: abd pain, n/v,dizzy Time Seen by Provider: 11/28/24 17:50 Source: patient Limitations: no limitations History of Present Illness ED Provider: Hansa Cruz PA-C HPI narrative: 49-year-old male with a history of constipation, fatty liver disease, hyperlipidemia, presents with abdominal pain since this morning. Patient is concerned he may have developed food poisoning after eating at a buffet last night. This morning, the patient developed nausea vomiting with diarrhea. Patient has had multiple episodes throughout the day, however his symptoms are improving, he has not had any active vomiting or diarrhea since noon. Associated lower abdominal cramping. Denies fever, cough cold symptoms, recent travel, recent use of antibiotics or hospitalizations. Related Data Home Medications ?Medication ?Instructions ?Recorded ?Confirmed cyclobenzaprine 5 mg tablet 5 mg PO TID PRN 05/20/24 Previous Rx's ?Medication ?Instructions ?Recorded naproxen 500 mg tablet 500 mg PO BID 15 days #30 tabs 03/30/24 Allergies Allergy/AdvReac Type Severity Reaction Status Date / Time No Known Allergies Allergy Verified 11/28/24 16:09 Review of Systems 2 Review of Systems: Yes all other systems are reviewed and are negative Constitutional: Constitutional: Denies fatigue and Denies fever(s) Cardiovascular: Cardiovascular: Denies chest pain and Denies dyspnea Respiratory: Respiratory: Denies cough and Denies dyspnea Gastrointestinal: Gastrointestinal: Reports abdominal pain, Reports diarrhea, Reports nausea and Reports vomiting Endocrine: Endocrine: Denies fatigue PMFSH Past Medical History Attestation statement: The following information was validated with the patient. Medical History Low back pain Dyspepsia Generalized abdominal pain Elevated bilirubin Mixed hyperlipidemia Right-sided abdominal pain of unknown etiology Syncope COVID-19 vaccine dose not administered Viral illness Elevated LFTs H/O diverticulitis of colon Lower abdominal pain Erectile dysfunction Lumbar degenerative disc disease Carpal tunnel syndrome Hypercholesterolemia Fatty liver Diverticular disease Renal calculus Obesity (BMI 30-39.9) Vitamin D deficiency Sexually transmitted disease exposure Surgical History History of cholecystectomy Family History Family History Father No problems noted. Mother Pancreatic cancer Social History Social History Housing: Apartment Alcohol intake: never Patient Tobacco Use Status: Never used Tobacco Smoked in Last 30 Days: No e-Cigarette/Vaping Use: Never Used Second Hand Smoke Exposure: No Use of substances other than those prescribed or required for medical reasons: Yes Advance Directives: No Advance Directives Information Provided: No Current occupational status: unemployed Cognitive needs: No Hearing needs: No Vision needs: Yes Physical Exam 2 Vital Signs: Vital Signs: Last Vital Signs Temp 98.8 F 11/28/24 19:11 Pulse 70 11/28/24 19:11 Resp 20 11/28/24 19:11 BP 122/73 11/28/24 19:11 Pulse Ox 96 11/28/24 19:11 O2 Del Method Room Air 11/28/24 19:11 BMI result Body Mass Index 23.1 Const: Other: Alert well-appearing Orientation/consciousness: patient oriented x3 Resp: Other: Nonlabored respiration Cardio: Other: Normal peripheral perfusion GI: Other: Abdomen is soft, nondistended nontender no guarding Skin: Other: Warm dry no rash Neuro: General: patient oriented x3, no focal motor deficits and CN's II-XI intact bilaterally Psych: Other: Calm cooperative Course Reevaluation(s) Reevaluation #1: Drinking, eager for discharge Medications Administered Discontinued Medications Generic Name Dose Route Start Last Admin Trade Name Reny PRN Reason Stop Dose Admin Ondansetron HCl 4 mg 11/28/24 18:14 11/28/24 18:21 Ondansetron Odt 4 Mg Tab.Rapdis TRANSLINGU 11/28/24 18:15 4 mg ONCE ONE Administration Medical Decision Making Medical Decision Making MDM Narrative: 49-year-old male with a history of constipation, fatty liver disease, hyperlipidemia, presents with abdominal pain since this morning. Patient is concerned he may have developed food poisoning after eating at a buffet last night. This morning, the patient developed nausea vomiting with diarrhea. Patient has had multiple episodes throughout the day, however his symptoms are improving, he has not had any active vomiting or diarrhea since noon. Associated lower abdominal cramping. Denies fever, cough cold symptoms, recent travel, recent use of antibiotics or hospitalizations. Problem: Constipation History: Per patient I have considered the following differential diagnoses: Constipation, viral gastroenteritis, diverticulitis, C diff, traveler's diarrhea Plan: Screening labs and a viral panel were obtained from triage, this is likely viral gastroenteritis given such illness has been prevalent within the community. His abdominal exam is benign, he does not warrant a CT scan at this time. P.o. challenge now. He still can be constipated, he has chronic constipation, we will obtain a screening KUB. I have independently reviewed the following tests: Labs: Slight leukocytosis, not anemic, no electrolyte abnormality, LFTs are at baseline, viral panel negative, urine not infected KUB: Still appears constipated...... Lab Data 11/28/24 17:16 11/28/24 17:16 Labs: Lab Results 11/28/24 11/28/24 Range/Units 17:16 17:23 WBC 13.6 H (4.8-10.8) X10*3/uL RBC 5.97 H D (4.60-5.80) X10*6/uL Hgb 16.9 D (14.0-18.0) g/dl Hct 50.5 D (42.0-52.0) % MCV 84.6 (80.0-98.0) fL MCH 28.3 (27.0-33.0) pg MCHC 33.5 (31.0-36.0) g/dl RDW 14.6 (11.0-16.0) % Plt Count 220 (160-400) X10*3/uL MPV 11.0 (9.4-12.4) fL Immature Gran % (Auto) 0.4 (0.0-0.4) % Neut % (Auto) 95.8 H (45-73) % Lymph % (Auto) 1.5 L (20-40) % [place] % (Auto) 2.1 (2-11) % Eos % (Auto) 0.1 (0-4) % Baso % (Auto) 0.1 (0-2) % Lymph # (Auto) 0.2 L (1.2-4.9) X10*3/uL [place] # (Auto) 0.3 (0.1-1.2) X10*3/uL Eos # (Auto) 0.0 (0.0-0.4) X10*3/uL Baso # (Auto) 0.0 (0.0-0.2) X10*3/uL Abs Immat Gran (auto) 0.05 H (0.00-0.03) X10*3/uL Absolute Neuts (auto) 13.0 H (2.0-8.3) x10*3/uL Absolute Nucleated RBC 0.000 (0.0-0.012) X10*3/uL Nucleated RBC % (auto) 0.0 (0.0-0.2) /100WBC Smear Tech's Comments VERIFIED Sodium 141 (135-145) mmol/L Potassium 4.5 (3.3-5.1) mmol/L Chloride 109 H (96-108) mmol/L Carbon Dioxide 26 (22-29) mmol/L Anion Gap 11 L (12-20) BUN 18 H (9-16) mg/dL Creatinine 0.89 (0.5-1.4) mg/dL Estim Creat Clear Calc 111.9 Estimated GFR > 60 Random Glucose 129 H (60-115) mg/dL Calcium 10.1 D (8.4-10.2) mg/dL Total Bilirubin 1.6 H (0.0-1.0) mg/dL AST 26 (5-37) U/L ALT 26 (0-40) U/L Alkaline Phosphatase 118 H (39-117) U/L Troponin I High Sens < 2.7 (<3.5-35.0) ng/L Total Protein 8.9 H (6.5-8.0) g/dL Albumin 4.8 (3.5-5.0) g/dL Urine Color Dark Yellow Urine Appearance Clear Urine pH 5.5 (5.0-9.0) Ur Specific [place] >= 1.030 H (1.005-1.025) Urine Protein 30 (1+) H (Neg-Trace) mg/dL Urine Glucose (UA) Negative (Negative) mg/dL Urine Ketones 40 (Negative) mg/dL Urine Blood Negative (Negative) Urine Nitrite Negative (Negative) Ur Leukocyte Esterase Negative (Negative) Urine RBC 0-2 (0-2) /HPF Urine WBC 0-5 (0-5) /HPF Ur Squamous Epith Cells 0-2 (0-2) /HPF Urine Bacteria None Seen (None Seen) Hyaline Casts 0-2 (0-2) /LPF Influenza Type A (PCR) NEGATIVE (Negative) Influenza Type B (PCR) NEGATIVE (Negative) RSV RNA Qual (PCR) NEGATIVE (Negative) SARS-CoV-2 RNA (RT-PCR) NEGATIVE (Negative) Discharge Plan Discharge Clinical Impression: Constipation Patient Disposition: Home, Self-Care Instructions: Constipation (ED) Additional Instructions: Despite the fact that you were having loose stools today, the x-ray reveals you are constipated. See home care instructions. Given you have chronic constipation, you should stay on a stool softener daily, such as Colace which can be purchased [id number]. You should also use MiraLax daily, to help regulate your bowel movements. Follow up with your primary care provider as needed. All of your screening labs were completely normal. Prescriptions: No Action naproxen 500 mg tablet 500 mg PO BID 15 Days Qty: 30 2RF cyclobenzaprine 5 mg tablet 5 mg PO TID PRN Print Language: Yakut
[2024-11-28 18:02] VITALS: BP 99/55; PULSE 75; RESP 17; TEMP 36.6; O2SAT 96
[2024-11-28 18:05] LABS: Influenza A PCR NEGATIVE (Negative); Influenza B PCR NEGATIVE (Negative); Resp Syncy Virus RNA Qual PCR NEGATIVE (Negative); SARS COV2 PCR INHOUSE NEGATIVE (Negative)
[2024-11-28 18:21] VITALS: BP 125/78; PULSE 77; RESP 16
[2024-11-28] MEDS: Ondansetron ODT 4 MG TAB.RAPDIS TRANSLINGU (18:21)
[2024-11-28 18:52] LABS: SLIDE REVIEW VERIFIED
[2024-11-28 19:11] VITALS: BP 122/73; PULSE 70; RESP 20; TEMP 37.1; O2SAT 96
--- NOTE | 2024-11-28 19:12 | MHC.EDTECH ---
This Pct assumed care of Patient at 1900 ,vitals taken ,Patient resting quietly in bed ,no apparent distress noted .
[2024-11-28 20:06] VITALS: BP 122/77; PULSE 84; RESP 14; O2SAT 99
[2024-11-28 20:28] VITALS: BP 122/77; PULSE 84; RESP 14; TEMP 36.9; O2SAT 99
== END 2024-11-28 20:29 | disposition home or self-care (01) ==
PROVIDERS: Emergency Provider Emergency Medicine; PCP Internal Medicine
DX: K59.00 Constipation, unspecified (principal); R11.2 Nausea with vomiting, unspecified; R10.30 Lower abdominal pain, unspecified; E78.5 Hyperlipidemia, unspecified; Z03.818 Encounter for observation for suspected exposure to other biological agents ruled out; Z79.899 Other long term (current) drug therapy
CPT/HCPCS: 0241U; 74018; 80053; 81001; 84484; 85025; 93005; 99283; 99285

== ENCOUNTER → 2024-11-28 16:19 | Outpatient (BNV) | payer OTHER, SELFPAY | PROVIDERS: Emergency Provider Emergency Medicine; PCP Internal Medicine; Visit Provider Internal Medicine | DX: R07.9 Chest pain, unspecified (principal) | CPT/HCPCS: 93010 ==

== ENCOUNTER → 2024-11-28 18:14 | Outpatient (BNV) | payer OTHER, SELFPAY | PROVIDERS: Emergency Provider Emergency Medicine; PCP Internal Medicine; Visit Provider Radiology Diagnostic Radiology | DX: R52 Pain, unspecified (principal) | CPT/HCPCS: 74018 ==

== ENCOUNTER 2024-12-10 10:45 | Outpatient (AMB) | payer OTHER, SELFPAY ==
[2024-12-10 10:59] VITALS: BP 100/60; PULSE 74; RESP 14; TEMP 37.3; O2SAT 95; BMI 31.6
--- NOTE | 2024-12-10 10:59 | MHC.OFFWIV ---
Intake Vital Signs 12/10/24 10:59 Height 5 ft 9 in Weight 214 lb BMI 31.6 BP 100/60 Blood Pressure Location Lt brachial Position Sitting Respiration 14 Pulse 74 Pulse Source Pulse Oximeter Temp 99.1 F Temp Source Oral Pulse Oximetry (%) 95 Oxygen Delivery Method Room Air Intake Visit Reasons: EP-sore throat, body ache, fever, chills, earache Intake Note: Pt is here today c/o sore throat, bodyaches, fever, chills and bilateral earache x4days Patient Tobacco Use Status: Never used Tobacco Allergies No Known Allergies Allergy (Verified 12/10/24 11:01) HPI EP-sore throat, body ache, fever, chills, earache HPI Details Pt is here today c/o sore throat, bodyaches, fever, chills and bilateral earache x4days PFSH Medical History Low back pain Dyspepsia Generalized abdominal pain Elevated bilirubin Mixed hyperlipidemia Right-sided abdominal pain of unknown etiology Syncope COVID-19 vaccine dose not administered Viral illness Elevated LFTs H/O diverticulitis of colon Lower abdominal pain Erectile dysfunction Lumbar degenerative disc disease Carpal tunnel syndrome Hypercholesterolemia Fatty liver Diverticular disease Renal calculus Obesity (BMI 30-39.9) Vitamin D deficiency Sexually transmitted disease exposure Surgical History History of cholecystectomy Family History Father No problems noted. Mother Pancreatic cancer Social History Housing: Apartment Alcohol intake: never Patient Tobacco Use Status: Never used Tobacco e-Cigarette/Vaping Use: Never Used Second Hand Smoke Exposure: No Current occupational status: unemployed Cognitive needs: No Hearing needs: No Vision needs: Yes Review of Systems Const All systems reviewed & are unremarkable except as noted in HPI and below Physical Exam Vital Signs: Last Vital Signs Temp 99.1 F 12/10/24 10:59 Pulse 74 12/10/24 10:59 Resp 14 12/10/24 10:59 BP 100/60 12/10/24 10:59 Pulse Ox 95 12/10/24 10:59 Oxygen Delivery Method Room Air 12/10/24 10:59 BMI result Body Mass Index 31.6 Results AMB Rapid Strep AMB Rapid Strep Negative Last Edit by Michelle Noguera CMA on 12/10/24 11:16 Results Reviewed Results Reviewed: Laboratory Last Values Strep Scn Rapid Clinic Negative 12/10/24 11:00 Assessment & Plan Assessment & Plan (1) Viral syndrome: Code(s): B34.9 - Viral infection, unspecified Plan Patient is a 49-year-old male with no underlying respiratory conditions, who comes to the walk-in clinic complaining of acute onset of chills, body aches, fatigue, cough and nasal congestion. Rapid COVID test came back negative while he was still in the office, but pending flu COVID and RSV PCR results. He does have an erythematous and injected tympanic membrane, and even though the underlying etiology is viral, I am going to start Augmentin for this, due to him being symptomatic from it. This also could be empiric treatment for a pneumonia, although a plain film two view x-ray of the chest looked unremarkable for pneumonia or acute cardiopulmonary disease on my wet read. Orders: Orders SARS-CoV2/FLU/RSV Today J06.9 - Acute upper respiratory infection, unspecified AMB Rapid Strep Screen Today Z13.9 - Encounter for screening, unspecified BinaxNOW Covid-19 Ag Today Z20.822 - Contact with and (suspected) exposure to COVID-19 XR chest 2V Today R05.9 - Cough, unspecified Medications: New amoxicillin-pot clavulanate 875-125 mg 1 tab PO BID 7 days 14 tabs 0RF benzonatate 200 mg PO BID-TID PRN 20 caps 0RF cough oseltamivir (Tamiflu) 75 mg PO BID 5 days 10 caps 0RF Coding Level of Care Code Est Pt Level 4 (85729) Diagnoses Viral syndrome B34.9
== END 2024-12-10 14:10 | disposition home or self-care (01) ==
PROVIDERS: PCP Internal Medicine; Visit Provider Physician Assistant Medical
DX: Z13.9 Encounter for screening, unspecified (principal)

== ENCOUNTER 2024-12-10 10:45 | Outpatient (REF) | payer OTHER, SELFPAY ==
--- NOTE | ~2024-12-10 | XR_ITS ---
CLINICAL HISTORY: R05.9 - Cough, unspecified 2 view chest x-ray Comparison: None Findings: No consolidation or effusion. Normal size heart. No acute fracture. IMPRESSION: No consolidation. This document has been electronically signed by: Ebenezer Ríos MD on 12/10/2024 14:44:02
[2024-12-10 14:10] LABS: Binax Internal Control QC Valid; Binax Lot number: 869104; Binax Now Covid-19 Ag Negative (Negative); Binax Performed by: HO.BONILM
[2024-12-10 16:02] LABS: Influenza A PCR POSITIVE (Negative); Influenza B PCR NEGATIVE (Negative); Resp Syncy Virus RNA Qual PCR NEGATIVE (Negative); SARS COV2 PCR INHOUSE NEGATIVE (Negative)
== END 2024-12-10 10:46 | disposition home or self-care (01) ==
LOC: HO.HMGCX 10:45
PROVIDERS: PCP Internal Medicine; Visit Provider Physician Assistant Medical
DX: B34.9 Viral infection, unspecified (principal); J06.9 Acute upper respiratory infection, unspecified; R05.9 Cough, unspecified; Z20.822 Contact with and (suspected) exposure to COVID-19
CPT/HCPCS: 0241U; 71046; 87811; 87880; 99212

== ENCOUNTER → 2024-12-10 13:12 | Outpatient (BNV) | payer OTHER, SELFPAY | PROVIDERS: PCP Internal Medicine; Visit Provider Radiology Diagnostic Radiology | DX: R05.9 Cough, unspecified (principal) | CPT/HCPCS: 71046 ==

== ENCOUNTER 2024-12-14 14:57 | Outpatient (AMB) | payer OTHER, SELFPAY ==
--- NOTE | 2024-12-14 15:02 | MHC.PC.OV ---
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 Accompanied by: Self / Same As Patient Allergies No Known Allergies Allergy (Verified 12/16/24 05:58) Medication List - Last Reconciled 12/16/24 by JAMES Mar amoxicillin-pot clavulanate 875-125 mg 1 tab PO BID 7 days benzonatate 200 mg PO BID-TID PRN omeprazole 20 mg PO DAILY 30 days oseltamivir (Tamiflu) 75 mg PO BID 5 days Tobacco use date assessed: 12/14/24 Dental Screening Dental Screen Date: 12/14/24 Did you have a dental visit in the last 12 months?: No Did you have a dental problem in the last 6 months where you did not have access to dental care?: No Was dental information given to patient?: No HPI abdomen pain HPI Details The patient is a 49-year-old male with significant past medical history of diverticular disease,Hypercholesterolemia, obesity, fatty liver, constipation The patient is presenting today with abdominal pain and burning itching all over. He reports that he went to the [facility] on Thursday and Thursday he had diarrhea. The patient then explained that at [address] scan in the past of his stomach that showed fatty liver and diverticulosis. Patient reports that he feels pressure and pain pointing towards his upper gastric region. He reports that yesterday at 18:00 he ate with supposed and that is stomach pain. He reports that he is having heartburn as well. He reports that he was prescribed omeprazole but did not start the medication. He reports that he picked up the prescription today but has not started it yet. Reports that his mother from cancer and she did not having a cancer until she was started on omeprazole. Reports that it could have been something in the medication. Patient also reports that he was scheduled to have an EGD and he missed the appointment and did not reschedule. Discussed with patient that omeprazole is widely used and that is less likely the caused of his mother pancreatic cancer Discussed with patient that he should follow up with GI to get his EGD, for this would give us more information Encouraged the patient that he does need to started the omeprazole if he is having heartburn after eating and stomach discomfort The patient also endorsed suprapubic pressure. He denies any burning when urinating, reports that he does not urinate as much. He declines STD testing, but reports that it was due and urinalysis [facility] Medical History Low back pain Dyspepsia Generalized abdominal pain Elevated bilirubin Mixed hyperlipidemia Right-sided abdominal pain of unknown etiology Syncope COVID-19 vaccine dose not administered Viral illness Elevated LFTs H/O diverticulitis of colon Lower abdominal pain Erectile dysfunction Lumbar degenerative disc disease Carpal tunnel syndrome Hypercholesterolemia Fatty liver Diverticular disease Renal calculus Obesity (BMI 30-39.9) Vitamin D deficiency Sexually transmitted disease exposure Surgical History History of cholecystectomy Family History Father No problems noted. Mother Pancreatic cancer Social History Housing: Apartment Alcohol intake: never Patient Tobacco Use Status: Never used Tobacco e-Cigarette/Vaping Use: Never Used Second Hand Smoke Exposure: No Current occupational status: unemployed Cognitive needs: No Hearing needs: No Vision needs: Yes Questionnaire PHQ-9 Over the last 2 weeks, how often have you been bothered by any of the following problems? 1. Little interest or pleasure in doing things: not at all 2. Feeling down, depressed, or hopeless: not at all 3. Trouble falling or staying asleep, or sleeping too much: not at all 4. Feeling tired or having little energy: not at all 5. Poor appetite or overeating: not at all 6. Feeling bad about yourself - or that you are a failure or have let yourself or your family down: not at all 7. Trouble concentrating on things, such as reading the newspaper or watching television: not at all 8. Moving or speaking so slowly that other people could have noticed. Or the opposite - being so fidgety or restless that you have been moving around a lot more than usual: not at all 9. Thoughts that you would be better off or of hurting yourself in some way: not at all Total score: 0 Depression Screening Interpretation: Negative Depression Screening Done: Yes 31164 - PHQ-9 Billing: Yes Source: Developed by Drs. Jeremy Kearns, Jenny Velazquez, Davion Campo and colleagues, with an educational gerber from [email or web address]. Thrive Questionnaire Date Thrive assessed: 12/14/24 I am a: Patient What is your living situation today?: I have a steady place to live Within the past 12 months, did the food you bought not last and you didn't have the money to get more?: Never true Within the past 12 months, did you worry whether your food would run out before you got money to buy more?: Never true Do you have trouble paying for medicines?: No Do you have trouble getting transportation to medical appointments?: No Do you have trouble paying your heating and electricity bill?: No Do you have trouble taking care of your child, family member or friend?: No Do you have trouble with day-to-day activities such as bathing, preparing meals, shopping, managing finances, etc.?: No Are you currently unemployed and looking for a job?: No Are you interested in more education?: No Please select the resources that you would like help with: None Currently or been in a relationship where the following occur: No concerns reported THRIVE Score: 0 AUDIT C Alcohol Use Questionnaire (AUDIT-C) 1. How often do you have a drink containing alcohol?: Never 3. How often do you have six or more drinks on one occasion?: Never Total Score: 0 Score Reviewed/Action Taken: Yes VALE-7 AMB Questionnaire VALE-7 Date VALE - 7 assessed: 12/14/24 Feeling nervous, anxious, or on edge: 0 = Not at all Not being able to stop or control worryin = Not at all Worrying too much about different things: 0 = Not at all Trouble relaxin = Not at all Being so restless that it is hard to sit still: 0 = Not at all Becoming easily annoyed or irritable: 0 = Not at all Feeling afraid as if something awful might happen: 0 = Not at all Total VALE-7 score (0-4 normal; 5-9 mild; 10-14 moderate; 15-21 severe): 0 Source: Developed by Drs. Jeremy Kearns, Jenny Velazquez, Davion Campo and colleagues, with an educational gerber from [email or web address]. VALE-7 Assessment Billing VALE-7 Assessment Tool: VALE-7 Assessment 35437 Review of Systems Const Details: Denies chills, Denies fatigue, Denies fever(s), Denies headache(s) and Denies weakness HEENT Denies change in vision, Denies dizziness, Denies headache(s), Denies hearing loss, Denies nasal congestion, Denies sinus pain, Denies sinus pressure and Denies sore throat Card Denies chest pain, Denies lightheadedness, Denies dyspnea and Denies other (palpitations) Resp Denies cough, Denies dyspnea and Denies wheezing GI See HPI Denies hematuria and Denies dysuria Physical exam (Primary Care) Vital Signs: Last Vital Signs Pulse 57 12/14/24 15:06 BP 122/80 12/14/24 15:06 Pulse Ox 98 12/14/24 15:06 Oxygen Delivery Method Room Air 12/14/24 15:06 BMI result Body Mass Index 31.8 Tobacco/Smoking Status: Tobacco use Status Tobacco use date assessed 12/14/24 12/14/24 15:13 Patient Tobacco Use Status Never used Tobacco 12/14/24 15:04 e-Cigarette/Vaping Use Never Used 12/14/24 15:04 PHQ-9: PHQ-9 Score PHQ-9: Total score 0 12/16/24 08:05 Depression Screening Interpretation: Negative Thrive Assessment: Date of Thrive Assessment Date Thrive assessed 12/14/24 12/14/24 15:13 Currently or been in a relationship where the following occur: No concerns reported Const Other: General: no acute distress, well developed, alert and awake Nutritional Appearance: well nourished Orientation/consciousness: patient oriented x3 HENMT Head: Yes normocephalic and Yes atraumatic Ears: hearing grossly normal bilaterally and TM's normal bilaterally General nose exam: Normal external nose present and Normal nares present Mouth: Normal oral and palatal mucosa present and moist mucous membranes Teeth and gingiva: dentition normal Throat: Yes oropharynx normal Eyes Pupils: Equal, round and reactive pupils present and Pupil accommodation reflex normal EOM: EOMs intact bilaterally Neck Neck: Yes normal visual inspection, Yes no lymphadenopathy and Yes trachea midline Thyroid: Thyroid normal Carotids: no bruits Lymphatic: no lymphadenopathy noted Chest Chest palpation & inspection: normal inspection of the chest Resp Effort & Inspection: normal respiratory effort Auscultation: clear to auscultation bilaterally Cardio Rate: regular rate Rhythm: regular rhythm Heart sounds: S1 normal heart sound present, S2 normal heart sound present, no gallops, no murmurs and no rubs GI Palpation (GI): + epigastric tenderness, + suprapubic pressure/discomfort Auscultation: normal bowel sounds General: Yes no CVA tenderness t Coding Level of Care Code Est Pt Level 4 (04733) Diagnoses Suprapubic pressure R10.2 Upper abdominal pain R10.10 Fatty liver K76.0 Constipation, unspecified constipation type K59.00 Constipation type: unspecified constipation type Family history of pancreatic cancer Z80.0 Diverticular disease K57.90 Additional Codes VALE-7 Assessment Billing - VALE-7 Assessment Tool: VALE-7 Assessment 84170 ([id number]) PHQ-9 - 13670 - PHQ-9 Billing: Yes ([id number]) Time Spent (min) 36 Assessment & Plan Assessment & Plan (1) Suprapubic pressure: Code(s): R10.2 - Pelvic and perineal pain Category: Medical Plan: Patient declines STD testing, urinalysis ordered Denies any dysuria, urinary frequency, or hematuria (2) Upper abdominal pain: Code(s): R10.10 - Upper abdominal pain, unspecified Category: Medical Plan: Patient reports that he was scheduled for an EGD. Reports that he missed the appointment and did not reschedule Reports that he was also started on omeprazole 20 mg but has not taken the medication due to fear of cancer Reports heartburn. Discussed with patient that he should follow up with GI to get his EGD done, which would give us more information Encourage patient's symptoms started omeprazole daily before meals (3) Fatty liver: Code(s): K76.0 - Fatty (change of) liver, not elsewhere classified Category: Medical Plan: The patient has a history of fatty liver Discussed with patient at dietary modification, losing some weight can assist Follow up with GI as scheduled (4) Constipation: Code(s): K59.00 - Constipation, unspecified Category: Medical Qualifiers: Constipation type: unspecified constipation type Qualified Code(s): K59.00 - Constipation, unspecified Plan: KUB on 11/28/2024 showed the constipation,encouraged patient to start increase in his fluids intake and dietary fiber (5) Family history of pancreatic cancer: Code(s): Z80.0 - Family history of malignant neoplasm of digestive organs Category: Medical Plan: Patient reports that his mother passed due to pancreatic cancer. Reports that his mother was once on omeprazole and he feels like this medication has something to do with her cancer diagnosis Discussed with the patient that omeprazole is widely used and should be safe for him to take (6) Diverticular disease: Comment: Diverticulitis May 2019 Code(s): K57.90 - Diverticulosis of intestine, part unspecified, without perforation or abscess without bleeding Category: Medical Plan: Patient has a history of diverticulitis. Patient was seen in the ER on 11/28/2024 for similar complaints. KUB was done and showed that the patient was constipated Discussed with patient and increase his fluid intakes and fiber in diet Plan He is advised to schedule an annual physical examination with his PCP sometime in the next few months Orders: Orders [facility] CC w/rflx Micro + Cult 12/14/24 R10.2 - Pelvic and perineal pain
[2024-12-14 15:06] VITALS: BP 122/80; PULSE 57; O2SAT 98; BMI 31.8
== END 2024-12-14 15:53 | disposition home or self-care (01) ==
PROVIDERS: PCP Internal Medicine
DX: R10.2 Pelvic and perineal pain (principal); R10.10 Upper abdominal pain, unspecified; K76.0 Fatty (change of) liver, not elsewhere classified; K59.00 Constipation, unspecified; Z80.0 Family history of malignant neoplasm of digestive organs; K57.90 Diverticulosis of intestine, part unspecified, without perforation or abscess without bleeding

== ENCOUNTER 2024-12-14 14:57 | Outpatient (REF) | payer OTHER, SELFPAY ==
[2024-12-14 16:38] LABS: Appearance Urine Clear; Color Urine Yellow; Glucose Urine UA Negative (Negative); Leukocyte Esterase Urine Negative (Negative); Nitrite Urine Negative (Negative); Specific Gravity - Urine 1.015 (1.005-1.025); Urine Blood Negative (Negative); Urine Ketones Negative (Negative); Urine Protein Negative (Neg-Trace)
== END 2024-12-14 14:58 | disposition home or self-care (01) ==
LOC: HO.LAB 14:57
PROVIDERS: PCP Internal Medicine
DX: R10.2 Pelvic and perineal pain (principal); R10.10 Upper abdominal pain, unspecified; K76.0 Fatty (change of) liver, not elsewhere classified; K59.00 Constipation, unspecified; K57.90 Diverticulosis of intestine, part unspecified, without perforation or abscess without bleeding; Z80.0 Family history of malignant neoplasm of digestive organs
CPT/HCPCS: 81003; 96127; 99212

== ENCOUNTER 2025-04-20 10:58 | Outpatient (AMB) | payer OTHER, SELFPAY ==
--- NOTE | 2025-04-20 11:09 | MHC.OFFVIS ---
Vital Signs 04/20/25 11:10 Height 5 ft 9 in Weight 208 lb BMI 30.7 BP 111/59 L Blood Pressure Location Lt brachial Position Sitting Pulse 75 Pulse Oximetry (%) 96 Oxygen Delivery Method Room Air Intake Visit Reasons: 2y follow up/ Medication refills Intake Note: Patient follow up for GERD fozia was 07/10/2023. Patient cc: GERD, abdominal discomfort and constipation. Denies any other GI issues. Manager Strategy & Account Required: No Accompanied by: Self / Same As Patient Allergies No Known Allergies Allergy (Verified 04/20/25 11:08) Medication List - Last Reconciled 04/20/25 by Brennen Godfrey MD omeprazole 20 mg PO DAILY HPI HPI 2y follow up/ Medication refills: Details: GI CLINIC visit for this 50 YM followed in GI for LLQ pain and diverticulosis. CHRONIC? ILLNESSES:?obesity, chronic back pain, on disability, hypercholesterolemia,? carpal tunnal syndrome - bilateral, fatty liver, renal calculus 03/2018,? diverticulitis - 2014, vitamin D deficiency, HX of constipation, DDD (? degenerative disc disease ), Allergic rhinitis, vision impairment TODAY'S VISIT Patient follow up for GERD fozia was 07/10/2023. Patient cc: GERD, abdominal discomfort and constipation Denies recent heartburn Intermittent episodes of cramping upper abd pain without radiation Makes him bend over and pain goes away in a few seconds or upto a minute Can be fine for months in between episode. Can have the pain in the morning when he wakes up or after meals Can have slight nausea sometimes and denies bloating. Has been more constipated - takes Miralax and a pill which helps. Has been loosing weight - trying to control his eating Unsure if pain is similar to pain related to GB in the past States he was very sick and unable to eat and was loosing wt. Symptoms resolved completely after gallbladder surgery. PAST VISITS: CC: Patient reports he went to [facility] on 07/06 with RUQ abdominal pain. He states RUQ abdominal pain is constant and also reports constipation. Patient states he has occasional abdominal burning and itching. Offered pain pills for pain and patient declined. Continues to have RUQ pain Pt had Lasagnia before the pain started. He was taking the powder with mild improvement - not significant Minimal improvement in pain after he has a bowel movement. Abd CT results reviewed. Continues to have intermittent rt sided abdominal pain/weird feeling in the abdomen - sometimes radiates to the left side. Feels better when he empties himself. Has not tried taking the Miralax yet. ? ? abd pain is associated with ?intake of fried foods ? Notes?generalized abdominal pain. Intermittent and sometimes can last a whole day Can have lower abdominal cramping. Changed his diet and avoiding greasy and fried foods. More constipation at present - has a BM once a day with mild straining. Had diarrhea a few weeks ago. Drinking herbal teas Has been loosing wt due to a change in his diet. Started taking Vitamin E for Fatty liver on advice of digester. Mom recently of pancreatic cancer at age 68 yrs. PAST VISIT: Lab results reviewed with the pt. Scheduled for abd US on 07/24/22. Denies heartburn or dysphagia. Denies frequent abdominal pain - mostly if he takes any foods with seeds Complains of constipation - resolves when he takes oatmeal Mom with metastatic pancreatic cancer end of May at age 68 yrs. He took car of her Mom when she was ill Denies known FH of pancreatic cancer, colon polyps or GI malignancy Did not get the COVID vaccine yet and planning to get it ? Not against it. Lab results reviewed - LFTs normal except bilirubing of 1.5 ? Gained a few lbs - weighs 215 lbs (lost 10 lbs over the past 1.5 yrs) ?Doing pretty good. ? Notes? intermittent mild LLQ pain which comes and comes related to what he eats a few? times a week. ?Sometimes can have abd pain with? oatmeal. ?Trying to eat more vegetables which can cause gas - does not? eat grease. ?BM vary between constipation, normal BM and loose? stools. ?Gets diarrhea and abdominal pain if he takes a fibre? supplement. ?weight fluctuates between 218 to 219? lbs. ?[place] [facility], [place] and a dark? urine. ?PAST GI HISTORY BY REVIEW OF MEDICAL RECORDS: ?Last? seen on 09/02/20: ?Assessments ?1. Diverticulosis - K57.90? (Primary) ?2. LLQ abdominal pain - R10.32 ?3. Colon cancer? screening - Z12.11 ?44-year-old male with obesity, chronic back pain,? on disability, hypercholesterolemia, carpal tunnal syndrome - bilateral, fatty? liver, renal calculus 03/2018, diverticulitis - 2014, vitamin D deficiency, HX of? constipation, DDD ( degenerative disc disease ), Allergic rhinitis, vision? impairment. Patient was referred to the GI clinic for evaluation of generalized? abdominal pain. He was diagnosed with the acute diverticulitis a few months ago? and was treated with antibiotics. Patient also complains of constipation? alternating with diarrhea with urgency. His symptoms are suggestive of IBS with? diarrhea and constipation. A serologies for celiac sprue were? negative ?Patient was advised to continue using a fiber supplement 1-2? times daily. ?08/20 Colonoscopy showed diverticulosis and hemorrhoids? and no polyps were detected. Random biopsies obtained from the colon were? normal. Of note past colonoscopy in 09/[address] Shaw showed? diverticulosis and hemorrhoids. ?Treatment ?1.? Diverticulosis ?Notes: Patient education: High-fiber diet (Beyond the? Basics). ?2. Colon cancer screening ?Notes: 08/2019? colonoscopy showed diverticulosis and hemorrhoids and no polyps were detected.? Patient denies note family history of colon polyps or cancer. Repeat colonoscopy? is advised in 10 years. ?. ?Follow Up ?3- 4 Months? (Reason: FU of LLQ pain and diverticulosis ?LABS? [place] [facility]:?06/25/20 reviewed, Cr 0.84. Elevated LFTs with total bilirubin of? 1.1, AST 15, ALT 12, alkaline phosphatase 98.? 06/2019 Hepatitis a B? and C serologies were negative. Repeat LFTs on 11/16/2019 were normal except? total bilirubin of 1.1.? Serologies for celiac sprue were negative in? June 2019 ?IMAGING STUDIES:?10/08/[address] SCAN SHOWED: 1.? No CT evidence for acute abnormality within the abdomen or pelvis. 2.? Mild colonic diverticulosis without CT evidence to suggest activediverticulitis. 07/2022 ABD US SHOWED: 1. There is generalized increase in hepatic echotexture, consistentwith fatty infiltration or hepatocellular disease. Please correlate clinically. No focal hepatic mass or intrahepatic biliary dilatation is seen. ?2. There is mild splenomegaly. ?3. The gallbladder is surgically absent. ?4. Technically limited ultrasound examination, in particular of the pancreas. 11/01/[address] scan showed? Diverticulosis. No evidence of diverticulitis. Stable probable small right renal? cyst. ENDOSCOPIC STUDIES:? 08/2019 COLONOSCOPY SHOWED: No polyps were detected. Random biopsies were obtained to check for microscopic colitis - NORMAL. Moderate to severe diverticulosis seen in the left colon Moderate hemorrhoids on retroflexed exam. Plan:? Repeat Colonoscopy interval based on path results ? in 3-5 years if polyps are adenomatous and 10 years if polyps are hyperplastic. PFSH Medical History Low back pain Dyspepsia Generalized abdominal pain Elevated bilirubin Mixed hyperlipidemia Right-sided abdominal pain of unknown etiology Syncope COVID-19 vaccine dose not administered Viral illness Elevated LFTs H/O diverticulitis of colon Lower abdominal pain Erectile dysfunction Lumbar degenerative disc disease Carpal tunnel syndrome Hypercholesterolemia Fatty liver Diverticular disease Renal calculus Obesity (BMI 30-39.9) Vitamin D deficiency Sexually transmitted disease exposure Surgical History History of cholecystectomy Family History Father No problems noted. Mother Pancreatic cancer Social History Housing: Apartment Alcohol intake: never Patient Tobacco Use Status: Never used Tobacco e-Cigarette/Vaping Use: Never Used Second Hand Smoke Exposure: No Current occupational status: unemployed Cognitive needs: No Hearing needs: No Vision needs: Yes Review of Systems Const Denies fever(s), Denies headache(s) and Reports weight loss Eyes Denies eye discharge and Denies irritation ENT Reports Normal hearing present, Denies dysphagia, Denies dizziness and Denies headache(s) Card Denies chest pain, Denies leg edema and Denies dyspnea on exertion Resp Denies cough, Denies dyspnea on exertion and Denies wheezing GI Reports abdominal pain, Denies change in bowel habits, Reports constipation, Denies dysphagia and Reports heartburn Denies dysuria Musc Denies back pain and Reports arthralgias Skin/Breast Denies pruritus, Denies rash and Denies jaundice Neuro Reports Normal hearing present, Denies Abnormal speech present, Denies dizziness, Denies headache(s) and Denies seizure-like activity Psych Denies anxiety, Denies depression and Denies panic attacks Endo Denies cold intolerance, Denies flushing and Denies heat intolerance Harjit/Lymph Denies easy bleeding and Denies easy bruising Aller/Immun Denies wheezing Physical Exam Vital Signs: Last Vital Signs Pulse 75 04/20/25 11:10 BP 111/59 L 04/20/25 11:10 Pulse Ox 96 04/20/25 11:10 Oxygen Delivery Method Room Air 04/20/25 11:10 BMI result Body Mass Index 30.7 Const General: healthy appearing and no acute distress Nutritional Appearance: obese Orientation/consciousness: patient oriented x3 Limitations: no limitations HEENT Head: Yes normal to inspection Ears: hearing grossly normal bilaterally Eyes Sclerae: sclerae normal Pupils: Equal, round and reactive pupils present Neck Neck: Yes normal visual inspection Chest Chest palpation & inspection: normal inspection of the chest Resp Effort & Inspection: normal respiratory effort Auscultation: clear to auscultation bilaterally Cardio Palpation: normal PMI Rate: regular rate Rhythm: regular rhythm Heart sounds: S1 normal heart sound present, S2 normal heart sound present and no murmurs GI Palpation (GI): Soft to palpation, nontender and No hepatosplenomegaly present Auscultation: normal bowel sounds Rectal Exam - Male: Yes deferred Skin General skin exam: no rashes or lesions noted Neuro General: patient oriented x3, gait normal and moves all extremities Cranial nerves: Yes Equal, round and reactive pupils present and Yes Normal hearing present Speech: No Abnormal speech present Psych Appearance: grossly normal Mental Status: mental status grossly normal Assessment & Plan Assessment & Plan (1) Diverticular disease: Comment: Diverticulitis May 2019 Code(s): K57.90 - Diverticulosis of intestine, part unspecified, without perforation or abscess without bleeding Category: Medical (2) Fatty liver: Code(s): K76.0 - Fatty (change of) liver, not elsewhere classified Category: Medical (3) Upper abdominal pain: Code(s): R10.10 - Upper abdominal pain, unspecified Category: Medical (4) Constipation: Code(s): K59.00 - Constipation, unspecified Category: Medical Qualifiers: Constipation type: unspecified constipation type Qualified Code(s): K59.00 - Constipation, unspecified Plan 50 year-old male with obesity, chronic back pain, on disability,? hypercholesterolemia, bilateral carpal tunnal syndromel, fatty liver, renal? calculus 03/2018, diverticulitis - 2014, vitamin D deficiency, HX of? constipation, DDD ( degenerative disc disease ), Allergic rhinitis, vision? impairment. Patient was referred to the GI clinic for evaluation of generalized? abdominal pain. He was diagnosed with the acute diverticulitis and was treated with antibiotics. Patient also complains of constipation? alternating with diarrhea with urgency. His symptoms are suggestive of IBS with? diarrhea and constipation. Serologies for celiac sprue were? negative Patient was advised to continue using a fiber supplement 1-2 times? daily. Patient was [place] [facility] [place] with elevated LFTs. Hepatitis a? B and C serologies were negative. Liver Fibrosis Score of 0.16, Liver Fibosis Stage F0 No biliary obstruction was noted on abdominal? ultrasound. LFTs were normal when rechecked on November 16 (except isolated elevation of TB). Increase in LFTs may? be related to a viral hepatitis (EBV or CMV), drug induced hepatitis or? transient biliary obstruction due to biliary sludge which resolved? spontaneously. Isolated elevation of Total Bilirubin (predominantly indirect) likely due to Gilbert's syndrome.? 10/[address] scan was negative except for diverticulosis 07/10/23 patient was advised to start omeprazole and schedule an upper endoscopy for evaluation of upper abdominal pain (scheduled on 10/09/23). 04/20/25 patient was advised to schedule an abdominal ultrasound for evaluation of upper abdominal pain Keep a log of frequency and duration of pain episodes Take Miralax every other day (instead of prn) for constipation FU appointment in 3 months Orders: Orders US abdomen complete Today R10.10 - Upper abdominal pain, unspecified Medications: Refilled omeprazole 20 mg PO DAILY 90 caps 1RF R10.10 - Upper abdominal pain, unspecified Coding Level of Care Code Est Pt Level 4 (61939) Diagnoses Diverticular disease K57.90 Fatty liver K76.0 Upper abdominal pain R10.10 Constipation, unspecified constipation type K59.00 Constipation type: unspecified constipation type Time Spent (min) 20
[2025-04-20 11:10] VITALS: BP 111/59; PULSE 75; O2SAT 96; BMI 30.7
== END 2025-04-20 11:52 | disposition home or self-care (01) ==
LOC: HO.HGI 10:59
PROVIDERS: PCP Internal Medicine; Visit Provider Internal Medicine Gastroenterology
DX: K57.90 Diverticulosis of intestine, part unspecified, without perforation or abscess without bleeding (principal); K76.0 Fatty (change of) liver, not elsewhere classified; R10.10 Upper abdominal pain, unspecified; K59.00 Constipation, unspecified
CPT/HCPCS: 99214

== ENCOUNTER → 2025-04-20 10:58 | Outpatient (BNVA) | payer OTHER, SELFPAY | PROVIDERS: PCP Internal Medicine; Visit Provider Internal Medicine Gastroenterology | DX: K57.90 Diverticulosis of intestine, part unspecified, without perforation or abscess without bleeding (principal); K76.0 Fatty (change of) liver, not elsewhere classified; R10.10 Upper abdominal pain, unspecified; K59.00 Constipation, unspecified | CPT/HCPCS: 99212 ==

== ENCOUNTER 2025-06-20 08:57 | Outpatient (REF) | payer OTHER, SELFPAY ==
--- NOTE | ~2025-06-20 | US_ITS ---
CLINICAL HISTORY: R10.10 - Upper abdominal pain, unspecified --- Additional Notes or Special Instructions: intermittent episode of upper abdominal pain US abdomen complete Comparison: 07/24/2022 Findings: Cholecystectomy. Common duct 2 mm. Fatty infiltration of the liver without focal abnormality. Main portal vein patent with normal direction of flow. Pancreas is unremarkable. Aorta and IVC patent and normal in caliber. The right kidney is normal, 11.5 cm in length. No focal abnormality or hydronephrosis. The left kidney is normal, 9.9 cm in length. No focal abnormality or hydronephrosis. The spleen is normal, 10.1 cm in length. No focal abnormality. Impression: Fatty infiltration of the liver, otherwise unremarkable This document has been electronically signed by: Brian Bahtia MD on 06/20/2025 21:40:52
--- OUTSIDE RECORDS SUMMARY | 2025-06-20 09:49 | XMS_ITS | Clinical Summary ---
Author Organization [facility] Address [address] [place] [address] Phone Care Team Providers Care Mold Filling Operator Name Role Phone Kasey Goodson MD Primary Care Provider [phone] Allergies No known active allergies Social History Tobacco Use Types Packs/Day Years Used Date Smoking Tobacco: Former Cigarettes Tobacco Cessation:Counseling Given: Not Answered Alcohol Use Standard Drinks/Week Comments Not Currently 0 (1 standard drink = 0.6 oz pur e alcohol) Education Answer Date Recorded Are you interested in more education? Not on eduard e 07/06/2023 Are you concerned about learning? Not on file 07/06/2023 No 07/06/2023 No 07/06/2023 Digital Access Answer Date Recorded No 07/06/2023 No 07/06/2023 Reliable internet access at home? Not on file 07/06/2023 Device with a working camera? Not on file Intimate Partner Violence Answer Date R ecorded Are you denied basic needs s uch as food, clothing, or medical care? No 07/06/2023 In the past 12 months have y ou been in a relationship with a person who hurts, threatens, or tries to control you? No 07/06/2023 Are you denied basic needs s uch as food, clothing, or medical care? No 07/06/2023 In the past 12 months have y ou been in a relationship with a person who hurts, threatens, or tries to control you? No 07/06/2023 Sex and Gender Information Value Date Recorded Sex Assigned at Not on file Legal Sex Male 8:39 AM EDT Gender Identity Not on file Sexual Orientation Not on file Last Filed Vital Signs Vital Sign Reading Time Taken Comments Blood Pressure 109/79 07/06/2023 11:05 AM EDT Pulse 49 07/06/2023 11:05 AM EDT Temperature 35.9 C (96.6 F) 07/06/2023 11:05 AM EDT Respiratory Rate 14 07/06/2023 8:49 AM EDT Oxygen Saturation 100% 07/06/2023 11:05 AM EDT Inhaled Oxygen Concentration - - Weight 95.7 kg (211 lb) 07/06/2023 8:49 AM EDT Height 175.3 cm (5' 9 ) 07/06/2023 8:49 AM EDT Body Mass Index 31.16 07/06/2023 8:49 AM EDT Plan of Treatment Health Maintenance Due Date Last Done Comments Adult Td,Tdap Booster 1977 LIPID PANEL 1977 DEPRESSION SCREENING 1989 SMOKING Hx and SMOKELESS TOB ACCO SCREENING 1990 HEPATITIS C SCREENING 1995 HIV ONE-TIME SCREENING (18-6 5 YEARS) 1995 COLOGUARD 2022 COLONOSCOPY 2022 COLORECTAL CANCER SCREENING 2022 FIT TEST 2022 FOBT 2022 SIGMOIDOSCOPY 2022 VIRTUAL COLONOSCOPY 2022 COVID-19 VACCINE ( - 2023-2 5 season) 2024 SCREENING FOR DIABETES 07/06/2026 07/06/2023 HEPATITIS A VACCINES Aged Out No long er eligible based on patient's age to complete this topic HIB VACCINES Aged Out No longer eligi ble based on patient's age to complete this topic MENINGOCOCCAL VACCINES (ACWY) Aged Out No longer eligible based on patient's age to complete this topic MENINGOCOCCAL VACCINES (B) Aged Out N o longer eligible based on patient's age to complete this topic PNEUMOCOCCAL VACCINES (0-49 years) Aged Out No longer eligible based on patient's age to complete this topic Medical Devices Not on file Insurance [facility] ONE CARE MEDICARE REPLACEMENT [facility] MEDICARE REPLACEMENT [facility] MEDICARE REPLACEMENT [facility] MEDICARE REPLACEMENT [facility] MEDICARE REPLACEMENT Member Subscriber [facility] / [facility] Name:Román Brady Relation to Subscriber:Self Name:Román Brady Payer ID:[id number] (NAIC) Group ID:Not on file Type:Medicare Address: [address] [place] [address] [facility] MEDICARE REPLACEMENT Care Teams Mold Filling Operator Relationship Specialty Start Date End Date Kasey Goodson MD [address] [place] [address] PCP - General Internal Medicine 07/06/23 Additional Source Comments The information contained in this document represents components of the legal health record. It is not the complete legal health record.[facility]
== END 2025-06-20 08:58 | disposition home or self-care (01) ==
LOC: HO.US 08:57
PROVIDERS: PCP Internal Medicine; Visit Provider Internal Medicine Gastroenterology
DX: R10.10 Upper abdominal pain, unspecified (principal)
CPT/HCPCS: 76700

== ENCOUNTER → 2025-06-20 08:59 | Outpatient (BNV) | payer OTHER, SELFPAY | PROVIDERS: PCP Internal Medicine; Visit Provider Radiology Diagnostic Radiology | DX: K76.0 Fatty (change of) liver, not elsewhere classified (principal) | CPT/HCPCS: 76700 ==

== ENCOUNTER 2025-06-28 14:54 | Outpatient (AMB) | payer OTHER, SELFPAY ==
[2025-06-28 15:18] VITALS: BP 102/60; PULSE 56; TEMP 36.7; O2SAT 97; BMI 31.0
--- NOTE | 2025-06-28 15:18 | AM.OFFWIN_ITS ---
Intake Vital Signs 06/28/25 15:18 Height 5 ft 9 in Weight 210 lb BMI 31.0 BP 102/60 Blood Pressure Location Rt brachial Position Sitting Pulse 56 Pulse Source Pulse Oximeter Temp 98.1 F Temp Source Oral Pulse Oximetry (%) 97 Oxygen Delivery Method Room Air Intake Visit Reasons: EP-dizziness Intake Note: pt presents with dizziness and blurry vision for 2 days Patient Tobacco Use Status: Never used Tobacco Allergies No Known Allergies Allergy (Verified 06/28/25 15:20) Do you need a note to return to daycare/school/sports/work: No HPI HPI Comments History of Present Illness Details History of Present Illness - The patient is a 50-year-old male pres enting with dizziness and blurred vision. - Dizziness started about a week ago, ma inly upon waking, lasting a few hours, described as personal imbalance. - Blurred vision occurs with dizziness, with transient visual impairment. - No chest pain, shortness of breath, or nausea reported. - History of fatty liver and low iron, w ith no recent blood work since November. - Non-adherence to vitamin D supplementa tion. - He has no head trauma, recent changes in medications, drug use or alcohol use. - He denies recent illness, ear pain, co ngestion, sinus pain or pressure. - He denies rectal bleeding, bruises, or bleeding gums. Physical Exam General: Cooperative, healthy appearing, comfortable, no acute distress and well developed Orientation: Patient oriented x3 Limitations: No limitations Head: Normal to inspection Ears: Hearing grossly normal bilaterally Nose: Normal external nose present Face and sinus: Normal facial exam Eyes: Appearance normal, both eyes and all related structures. PERRLA, EOMI. No nystagmus noted. Neck: Normal visual inspection and Yes full ROM. No carotid bruits noted. No thyromegaly noted. Respiratory: Normal respiratory effort and able to speak in complete sentences. Clear to auscultation bilaterally Cardiovascular: Regular rate and rhythm. Normal S1 and S2 GI: Normal to inspection. Soft to palpation and nontender, but patient reports past history of fatty liver and recent ultrasound Skin: No rashes or lesions noted Neuro: Patient oriented x3. CN II-XII intact. Extremities: Normal to inspection Patient was informed and verbally consented to the use of an ambient scribe for clinic note documentation during this visit. [facility] Medical History Low back pain Dyspepsia Generalized abdominal pain Elevated bilirubin Mixed hyperlipidemia Right-sided abdominal pain of unknown etiology Syncope COVID-19 vaccine dose not administered Viral illness Elevated LFTs H/O diverticulitis of colon Lower abdominal pain Erectile dysfunction Lumbar degenerative disc disease Carpal tunnel syndrome Hypercholesterolemia Fatty liver Diverticular disease Renal calculus Obesity (BMI 30-39.9) Vitamin D deficiency Sexually transmitted disease exposure Surgical History History of cholecystectomy Family History Father No problems noted. Mother Pancreatic cancer Social History Housing: Apartment Alcohol intake: never Patient Tobacco Use Status: Never used Tobacco e-Cigarette/Vaping Use: Never Used Second Hand Smoke Exposure: No Current occupational status: unemployed Cognitive needs: No Hearing needs: No Vision needs: Yes Review of Systems Const All systems reviewed & are unremarkable except as noted in HPI and below Physical Exam Vital Signs: Last Vital Signs Temp 98.1 F 06/28/25 15:18 Pulse 56 06/28/25 15:18 BP 102/60 06/28/25 15:18 Pulse Ox 97 06/28/25 15:18 Oxygen Delivery Method Room Air 06/28/25 15:18 BMI result Body Mass Index 31.0 Results AMB Hemoglobin A1c AMB Hemoglobin A1c 5.3 % Last Edit by Teresa Prieto MA on 06/28/25 16:30 Assessment & Plan Assessment & Plan (1) Dizziness: Code(s): R42 - Dizziness and giddiness Plan Most likely vertigo vs anemia vs electrolyte abnormality vs dehydration vs hypotension HgA1c in the office was 5.3 plan - Blood work ordered to assess for anemia, thyroid function, and electrolyte imbalances. - Consideration of vision assessment to rule out visual causes of dizziness. - Advised to consult an civil drafter for further evaluation of visual disturbances. - follow up with PCP Orders: Orders Complete Blood Count Auto Diff Today R42 - Dizziness and giddiness TSH reflex Free T4 Today R42 - Dizziness and giddiness Comprehensive Met. Panel Today R42 - Dizziness and giddiness AMB Hemoglobin A1c Today R42 - Dizziness and giddiness Coding Level of Care Code Est Pt Level 4 (94435) Diagnoses Dizziness R42
--- OUTSIDE RECORDS SUMMARY | 2025-06-28 16:17 | XMS_ITS | Clinical Summary ---
Author Organization [facility] Address [address] [place] [address] Phone Care Team Providers Care Ceramic Saw Tender Name Role Phone Kasey Goodson MD Primary Care Provider [phone] Allergies No known active allergies Social History [...] topic Medical Devices Not on file Insurance [facility] ONE CARE MEDICARE REPLACEMENT [facility] MEDIC[facility] REPLACEMENT [facility] MEDIC[facility] REPL[facility]EMENT [facility] MEDIC[facility] REPLACEMENT [facility] MEDICARE REPLACEMENT [facility] MEDIC[facility] REPLACEMENT Care Teams Ceramic Saw Tender Relationship Specialty Start Date End Date Kasey Goodson MD [address] [place] [address] PCP - General Internal Medicine 07/06/23 Additional Source Comments The information contained in this document represents components of the legal health record. It is not the complete legal health record.[facility]
== END 2025-06-28 16:33 | disposition home or self-care (01) ==
PROVIDERS: PCP Internal Medicine; Visit Provider Physician Assistant Medical
DX: R42 Dizziness and giddiness (principal)

== ENCOUNTER 2025-06-28 14:54 | Outpatient (REF) | payer OTHER, SELFPAY ==
[2025-06-28 17:13] LABS: MANUAL DIFF FLAG NO
[2025-06-28 20:31] LABS: Hematocrit 42.7 % (42.0-52.0); Hemoglobin 14.2 g/dl (14.0-18.0); Imm Gran Abs Auto 0.03 X10*3/uL (0.00-0.03); Imm Gran Pct Auto 0.4 % (0.0-0.4); Lymphocytes Absolute Auto 2.1 X10*3/uL (1.2-4.9); Mean Corpuscular HGB Conc 33.3 g/dl (31.0-36.0); Mean Corpuscular Hemoglobin 28.3 pg (27.0-33.0); Mean Corpuscular Volume 85.1 fL (80.0-98.0); NRBC Abs Auto 0.000 X10*3/uL (0.0-0.012); NRBC Pct Auto 0.0 /100WBC (0.0-0.2); Platelet Count 221 X10*3/uL (160-400); Red Blood Count 5.02 X10*6/uL (4.60-5.80); White Blood Count 7.8 X10*3/uL (4.8-10.8)
[2025-06-28 20:58] LABS: Alanine Aminotransferase 12 U/L (0-40); Albumin Level 4.4 g/dL (3.5-5.0); Alkaline Phosphatase 99 U/L (39-117); Anion Gap 14 (12-20); Aspartate Amino Transferase 25 U/L (5-37); Blood Urea Nitrogen 11 mg/dL (9-16); Calcium 9.6 mg/dL (8.4-10.2); Carbon Dioxide 28 mmol/L (22-29); Chloride 103 mmol/L (96-108); Estimated Glomerular Filt Rate > 60; Potassium 4.8 mmol/L (3.3-5.1); Sodium 140 mmol/L (135-145); Total Protein 7.4 g/dL (6.5-8.0)
== END 2025-06-28 14:55 | disposition home or self-care (01) ==
LOC: HO.LAB 14:54
PROVIDERS: PCP Internal Medicine; Visit Provider Physician Assistant Medical
DX: R42 Dizziness and giddiness (principal); Z13.1 Encounter for screening for diabetes mellitus
CPT/HCPCS: 36415; 80053; 83036; 84443; 85025; 99212

== ENCOUNTER 2025-06-29 10:19 | Outpatient (AMB) | payer OTHER, SELFPAY ==
--- NOTE | 2025-06-29 10:21 | MHC.OFFVIS ---
Vital Signs 06/29/25 10:28 Height 5 ft 9 in Weight 210 lb BMI 31.0 BP 95/59 L Blood Pressure Location Lt brachial Position Sitting Pulse 63 Pulse Oximetry (%) 98 Oxygen Delivery Method Room Air Intake Visit Reasons: US results Intake Note: Patient follow up for Constipation and US results. Patient went to [place] [facility]gent care due dizziness and have some lab work done. Patient cc: dizziness x a week, abdominal pain with burning sensation, denies any other GI issues. Tools Developer Required: No Accompanied by: Self / Same As Patient Allergies No Known Allergies Allergy (Verified 06/29/25 10:20) Medication List - Last Reconciled 06/29/25 by Brennen Godfrey MD omeprazole 20 mg PO DAILY PRN HPI HPI US results: Details: GI CLINIC visit for this 50 YM followed in GI for LLQ pain and diverticulosis. CHRONIC? ILLNESSES:?obesity, chronic back pain, on disability, hypercholesterolemia,? carpal tunnal syndrome - bilateral, fatty liver, renal calculus 03/2018,? diverticulitis - 2014, vitamin D deficiency, HX of constipation, DDD (? degenerative disc disease ), Allergic rhinitis, vision impairment TODAY'S VISIT Patient follow up for Constipation and US results. Patient went to the [facility]gent care due dizziness and have some lab work done. Patient cc: dizziness x a week, abdominal pain with burning sensation, denies any other GI issues. Lab and US results reviewed Concerned about dizziness - advised to contact PCP's office. Reassured that labs did not show anemia or electrolyte imbalance Notes a strong epigastric pain when he wakes up in the am and streches. Takes Tums and the pain goes away - takes longer to go away if he doesn't take the Tums. Sometimes can have abd discomfort after eating and pain resolves when he takes an antacid Taking Miralax if he does not have a BM Takes lemon water 1st thing in the morning Takes breakfast and is able to go to the bathroom right away. Has not been taking Omeprazole and advised to take it daily. Reports FH of colon polyps in both parents and his sister PAST VISITS: Patient follow up for GERD fozia was 07/10/2023. Denies recent heartburn Intermittent episodes of cramping upper abd pain without radiation Makes him bend over and pain goes away in a few seconds or upto a minute Can be fine for months in between episode. Can have the pain in the morning when he wakes up or after meals Can have slight nausea sometimes and denies bloating. Has been more constipated - takes Miralax and a pill which helps. Has been loosing weight - trying to control his eating Unsure if pain is similar to pain related to GB in the past States he was very sick and unable to eat and was loosing wt. Symptoms resolved completely after gallbladder surgery. PAST VISITS: CC: Patient reports he went to [facility] on 07/06 with RUQ abdominal pain. He states RUQ abdominal pain is constant and also reports constipation. Patient states he has occasional abdominal burning and itching. Offered pain pills for pain and patient declined. Continues to have RUQ pain Pt had Lasagnia before the pain started. He was taking the powder with mild improvement - not significant Minimal improvement in pain after he has a bowel movement. Abd CT results reviewed. Continues to have intermittent rt sided abdominal pain/weird feeling in the abdomen - sometimes radiates to the left side. Feels better when he empties himself. Has not tried taking the Miralax yet. ? ? abd pain is associated with ?intake of fried foods ? Notes?generalized abdominal pain. Intermittent and sometimes can last a whole day Can have lower abdominal cramping. Changed his diet and avoiding greasy and fried foods. More constipation at present - has a BM once a day with mild straining. Had diarrhea a few weeks ago. Drinking herbal teas Has been loosing wt due to a change in his diet. Started taking Vitamin E for Fatty liver on advice of stereo operator. Mom recently of pancreatic cancer at age 68 yrs. PAST VISIT: Lab results reviewed with the pt. Scheduled for abd US on 07/24/22. Denies heartburn or dysphagia. Denies frequent abdominal pain - mostly if he takes any foods with seeds Complains of constipation - resolves when he takes oatmeal Mom with metastatic pancreatic cancer end of May at age 68 yrs. He took car of her Mom when she was ill Denies known FH of pancreatic cancer, colon polyps or GI malignancy Did not get the COVID vaccine yet and planning to get it ? Not against it. Lab results reviewed - LFTs normal except bilirubing of 1.5 ? Gained a few lbs - weighs 215 lbs (lost 10 lbs over the past 1.5 yrs) ?Doing pretty good. ? Notes? intermittent mild LLQ pain which comes and comes related to what he eats a few? times a week. ?Sometimes can have abd pain with? oatmeal. ?Trying to eat more vegetables which can cause gas - does not? eat grease. ?BM vary between constipation, normal BM and loose? stools. ?Gets diarrhea and abdominal pain if he takes a fibre? supplement. ?weight fluctuates between 218 to 219? lbs. ?Admitted to [facility] with fever, chills and a dark? urine. ?PAST GI HISTORY BY REVIEW OF MEDICAL RECORDS: ?Last? seen on 09/02/20: ?Assessments ?1. Diverticulosis - K57.90? (Primary) ?2. LLQ abdominal pain - R10.32 ?3. Colon cancer? screening - Z12.11 ?44-year-old male with obesity, chronic back pain,? on disability, hypercholesterolemia, carpal tunnal syndrome - bilateral, fatty? liver, renal calculus 03/2018, diverticulitis - 2014, vitamin D deficiency, HX of? constipation, DDD ( degenerative disc disease ), Allergic rhinitis, vision? impairment. Patient was referred to the GI clinic for evaluation of generalized? abdominal pain. He was diagnosed with the acute diverticulitis a few months ago? and was treated with antibiotics. Patient also complains of constipation? alternating with diarrhea with urgency. His symptoms are suggestive of IBS with? diarrhea and constipation. A serologies for celiac sprue were? negative ?Patient was advised to continue using a fiber supplement 1-2? times daily. ?08/20 Colonoscopy showed diverticulosis and hemorrhoids? and no polyps were detected. Random biopsies obtained from the colon were? normal. Of note past colonoscopy in 09/[address] Shaw showed? diverticulosis and hemorrhoids. ?Treatment ?1.? Diverticulosis ?Notes: Patient education: High-fiber diet (Beyond the? Basics). ?2. Colon cancer screening ?Notes: 08/2019? colonoscopy showed diverticulosis and hemorrhoids and no polyps were detected.? Patient denies note family history of colon polyps or cancer. Repeat colonoscopy? is advised in 10 years. ?. ?Follow Up ?3- 4 Months? (Reason: FU of LLQ pain and diverticulosis ?LABS? [facility]:?06/25/20 reviewed, Cr 0.84. Elevated LFTs with total bilirubin of? 1.1, AST 15, ALT 12, alkaline phosphatase 98.? 06/2019 Hepatitis a B? and C serologies were negative. Repeat LFTs on 11/16/2019 were normal except? total bilirubin of 1.1.? Serologies for celiac sprue were negative in? June 2019 ?IMAGING STUDIES:?10/08/[address] SCAN SHOWED: 1.? No CT evidence for acute abnormality within the abdomen or pelvis. 2.? Mild colonic diverticulosis without CT evidence to suggest activediverticulitis. 07/2022 ABD US SHOWED: 1. There is generalized increase in hepatic echotexture, consistentwith fatty infiltration or hepatocellular disease. Please correlate clinically. No focal hepatic mass or intrahepatic biliary dilatation is seen. ?2. There is mild splenomegaly. ?3. The gallbladder is surgically absent. ?4. Technically limited ultrasound examination, in particular of the pancreas. 11/01/[address] scan showed? Diverticulosis. No evidence of diverticulitis. Stable probable small right renal? cyst. ENDOSCOPIC STUDIES:? 08/2019 COLONOSCOPY SHOWED: No polyps were detected. Random biopsies were obtained to check for microscopic colitis - NORMAL. Moderate to severe diverticulosis seen in the left colon Moderate hemorrhoids on retroflexed exam. Plan:? Repeat Colonoscopy interval based on path results ? in 3-5 years if polyps are adenomatous and 10 years if polyps are hyperplastic [facility] Medical History Low back pain Dyspepsia Generalized abdominal pain Elevated bilirubin Mixed hyperlipidemia Right-sided abdominal pain of unknown etiology Syncope COVID-19 vaccine dose not administered Viral illness Elevated LFTs H/O diverticulitis of colon Lower abdominal pain Erectile dysfunction Lumbar degenerative disc disease Carpal tunnel syndrome Hypercholesterolemia Fatty liver Diverticular disease Renal calculus Obesity (BMI 30-39.9) Vitamin D deficiency Sexually transmitted disease exposure Surgical History History of cholecystectomy Family History Father No problems noted. Mother Pancreatic cancer Social History Housing: Apartment Alcohol intake: never Patient Tobacco Use Status: Never used Tobacco e-Cigarette/Vaping Use: Never Used Second Hand Smoke Exposure: No Current occupational status: unemployed Cognitive needs: No Hearing needs: No Vision needs: Yes Review of Systems Const All systems reviewed & are unremarkable except as noted in HPI and below ENT Reports Normal hearing present Neuro Reports Normal hearing present and Denies Abnormal speech present Physical Exam Vital Signs: Last Vital Signs Pulse 63 06/29/25 10:28 BP 95/59 L 06/29/25 10:28 Pulse Ox 98 06/29/25 10:28 Oxygen Delivery Method Room Air 06/29/25 10:28 BMI result Body Mass Index 31.0 Const General: healthy appearing and no acute distress Nutritional Appearance: obese Orientation/consciousness: patient oriented x3 Limitations: no limitations HEENT Head: Yes normal to inspection Ears: hearing grossly normal bilaterally Eyes Sclerae: sclerae normal Pupils: Equal, round and reactive pupils present Neck Neck: Yes normal visual inspection Chest Chest palpation & inspection: normal inspection of the chest Resp Effort & Inspection: normal respiratory effort Auscultation: clear to auscultation bilaterally Cardio Palpation: normal PMI Rate: regular rate Rhythm: regular rhythm Heart sounds: S1 normal heart sound present, S2 normal heart sound present and no murmurs GI Palpation (GI): Soft to palpation, nontender and No hepatosplenomegaly present Auscultation: normal bowel sounds Rectal Exam - Male: Yes deferred Skin General skin exam: no rashes or lesions noted Neuro General: patient oriented x3, gait normal and moves all extremities Cranial nerves: Yes Equal, round and reactive pupils present and Yes Normal hearing present Speech: No Abnormal speech present Psych Appearance: grossly normal Mental Status: mental status grossly normal Assessment & Plan Assessment & Plan (1) Diverticular disease: Comment: Diverticulitis May 2019 Code(s): K57.90 - Diverticulosis of intestine, part unspecified, without perforation or abscess without bleeding Category: Medical (2) Fatty liver: Code(s): K76.0 - Fatty (change of) liver, not elsewhere classified Category: Medical (3) Upper abdominal pain: Code(s): R10.10 - Upper abdominal pain, unspecified Category: Medical (4) Constipation: Code(s): K59.00 - Constipation, unspecified Category: Medical Qualifiers: Constipation type: unspecified constipation type Qualified Code(s): K59.00 - Constipation, unspecified Plan 50 year-old male with obesity, chronic back pain, on disability,? hypercholesterolemia, bilateral carpal tunnal syndromel, fatty liver, renal? calculus 03/2018, diverticulitis - 2014, vitamin D deficiency, HX of? constipation, DDD ( degenerative disc disease ), Allergic rhinitis, vision? impairment. Patient was referred to the GI clinic for evaluation of generalized? abdominal pain. He was diagnosed with the acute diverticulitis and was treated with antibiotics. Patient also complains of constipation? alternating with diarrhea with urgency. His symptoms are suggestive of IBS with? diarrhea and constipation. Serologies for celiac sprue were? negative Patient was advised to continue using a fiber supplement 1-2 times? daily. Patient was seen at [facility] in 10/20 with elevated LFTs. Hepatitis a? B and C serologies were negative. Liver Fibrosis Score of 0.16, Liver Fibosis Stage F0 No biliary obstruction was noted on abdominal? ultrasound. LFTs were normal when rechecked on November 16 (except isolated elevation of TB). Increase in LFTs may? be related to a viral hepatitis (EBV or CMV), drug induced hepatitis or? transient biliary obstruction due to biliary sludge which resolved? spontaneously. Isolated elevation of Total Bilirubin (predominantly indirect) likely due to Gilbert's syndrome.? 10/[address] scan was negative except for diverticulosis 07/10/23 patient was advised to start omeprazole and schedule an upper endoscopy for evaluation of upper abdominal pain (scheduled on 10/09/23). 04/20/25 patient was advised to schedule an abdominal ultrasound for evaluation of upper abdominal pain Keep a log of frequency and duration of pain episodes Take Miralax every other day (instead of prn) for constipation 06/20/25 Abd US showed Fatty infiltration of the liver, otherwise unremarkable 06/29/25 Notes a strong epigastric pain when he wakes up in the am and streches. Takes Tums and the pain goes away - takes longer to go away if he doesn't take the Tums. Sometimes can have abd discomfort after eating and pain resolves when he takes an antacid Taking Miralax if he does not have a BM Has not been taking Omeprazole and advised to take it daily. Pt advised to schedule an EGD (upper abd pain) and colonoscopy (FH of colon polyps - no polyps seen during colon in 2019) Request sent to GI procedure schedulers FU appointment in 4 months - scheduled 10/12/25 Medications: New bisacodyl (Dulcolax (bisacodyl)) Take 4 tablets at 12 pm the day before colonoscopy appointment 10 mg (2 x 5 mg) PO ONCE 2 tabs 0RF colon prep 1 day polyethylene glycol 3350 (Miralax) Mix Miralax with 64 oz(8 cups) of Crystal light. Take 2 tablets of Dulcolax qt 12 pm. Wait to have your 1st bowel movement, then begin drinking Miralax. Drink a glass of Miralax every 10-15 minutes until you are finished. You will drink at least another 4 cups of clear liquid of your choice over the next 2 hours. Please drink as many clear liquids as possible You may have clear liquids up to four hours before your procedure 17 grams PO DAILY 238 grams 0RF colon prep 1 day Coding Level of Care Code Est Pt Level 4 (07112) Diagnoses Diverticular disease K57.90 Fatty liver K76.0 Upper abdominal pain R10.10 Constipation, unspecified constipation type K59.00 Constipation type: unspecified constipation type Time Spent (min) 24
[2025-06-29 10:28] VITALS: BP 95/59; PULSE 63; O2SAT 98; BMI 31.0
--- OUTSIDE RECORDS SUMMARY | 2025-06-29 11:37 | XMS_ITS | Clinical Summary ---
Author Organization [facility] Address [address] [place] [id number] Phone Care Team Providers Care Meteorological Aide Name Role Phone Kasey Goodson MD Primary Care Provider Allergies No known active allergies Social History [...] topic Medical Devices Not on file Insurance [facility] ONE CARE MEDICARE REPLACEMENT [facility] MEDICARE REPLACEMENT [facility] MEDICARE REPLACEMENT [facility] MEDICARE [facility]PLACEMENT [facility] MEDICARE REPLACEMENT [facility] MEDICARE REPLACEMENT Care Teams Meteorological Aide Relationship Specialty Start Date End Date Kasey Goodson MD [address] [place] [address] PCP - General Internal Medicine 07/06/23 Additional Source Comments The information contained in this document represents components of the legal health record. It is not the complete legal health record.[facility]
== END 2025-06-29 11:01 | disposition home or self-care (01) ==
LOC: HO.HGI 10:20
PROVIDERS: PCP Internal Medicine; Visit Provider Internal Medicine Gastroenterology
DX: K57.90 Diverticulosis of intestine, part unspecified, without perforation or abscess without bleeding (principal); K76.0 Fatty (change of) liver, not elsewhere classified; R10.10 Upper abdominal pain, unspecified; K59.00 Constipation, unspecified
CPT/HCPCS: 99214

== ENCOUNTER → 2025-06-29 10:19 | Outpatient (BNVA) | payer OTHER, SELFPAY | PROVIDERS: PCP Internal Medicine; Visit Provider Internal Medicine Gastroenterology | DX: Z71.2 Person consulting for explanation of examination or test findings (principal); K57.90 Diverticulosis of intestine, part unspecified, without perforation or abscess without bleeding; K76.0 Fatty (change of) liver, not elsewhere classified; R10.10 Upper abdominal pain, unspecified; K59.00 Constipation, unspecified; R19.7 Diarrhea, unspecified; R42 Dizziness and giddiness | CPT/HCPCS: 99212 ==

== ENCOUNTER 2025-06-30 14:48 | Outpatient (AMB) | payer OTHER, SELFPAY ==
--- OUTSIDE RECORDS SUMMARY | 2025-06-30 14:51 | XMS_ITS | Clinical Summary ---
Author Organization [facility] Address [address] [place] [id number] Phone Care Team Providers Care Gaming Manager Name Role Phone Kasey Goodson MD Primary Care Provider [phone] Allergies No known active allergies Social History [...] topic Medical Devices Not on file Insurance [facility] ONE CARE MEDICARE REPLACEMENT [facility] MEDICARE REPLACEMENT [facility] MEDICARE REPLACEMENT [facility] MEDICARE [facility]PLACEMENT [facility] MEDICARE REPLACEMENT [facility] MEDICARE REPLACEMENT Care Teams Gaming Manager Relationship Specialty Start Date End Date Kasey Goodson MD [address] [place] [address] PCP - General Internal Medicine 07/06/23 Additional Source Comments The information contained in this document represents components of the legal health record. It is not the complete legal health record.[facility]
--- NOTE | 2025-06-30 14:54 | A.OFFPC_ITS ---
Vital Signs 06/30/25 14:55 06/30/25 15:33 Height 5 ft 9 in Weight 208 lb 8 oz BMI 30.8 BP 100/62 108/60 Blood Pressure Location Lt brachial Lt brachial Position Sitting Sitting Respiration 18 Pulse 72 Pulse Source Pulse Oximeter Temp 97.5 F Temp Source Temporal Artery Scan Pulse Oximetry (%) 95 Oxygen Delivery Method Room Air Intake Visit Reasons: dizziness Drum Carrier Required: No Accompanied by: Self / Same As Patient Allergies No Known Allergies Allergy (Verified 06/30/25 14:56) Medication List - Last Reconciled 06/30/25 by Kasey Goodson MD bisacodyl (Dulcolax (bisacodyl)) 10 mg (2 x 5 mg) PO ONCE 1 day omeprazole 20 mg PO DAILY PRN polyethylene glycol 3350 (Miralax) 17 grams PO DAILY 1 day Tobacco use date assessed: 06/30/25 Dental Screening Dental Screen Date: 06/30/25 Did you have a dental visit in the last 12 months?: No Did you have a dental problem in the last 6 months where you did not have access to dental care?: No Was dental information given to patient?: Patient has dentist HPI dizziness HPI Details feels like passing out with tinnitus- states carpetting at has bad smell- does heve [facility] Medical History Low back pain Dyspepsia Generalized abdominal pain Elevated bilirubin Mixed hyperlipidemia Right-sided abdominal pain of unknown etiology Syncope COVID-19 vaccine dose not administered Viral illness Elevated LFTs H/O diverticulitis of colon Lower abdominal pain Erectile dysfunction Lumbar degenerative disc disease Carpal tunnel syndrome Hypercholesterolemia Fatty liver Diverticular disease Renal calculus Obesity (BMI 30-39.9) Vitamin D deficiency Sexually transmitted disease exposure Surgical History History of cholecystectomy Family History Father No problems noted. Mother Pancreatic cancer Social History Housing: Apartment Alcohol intake: never Patient Tobacco Use Status: Never used Tobacco e-Cigarette/Vaping Use: Never Used Second Hand Smoke Exposure: No Current occupational status: unemployed Cognitive needs: No Hearing needs: No Vision needs: Yes Questionnaire PHQ-9 Over the last 2 weeks, how often have you been bothered by any of the following problems? 1. Little interest or pleasure in doing things: not at all 2. Feeling down, depressed, or hopeless: not at all 3. Trouble falling or staying asleep, or sleeping too much: not at all 4. Feeling tired or having little energy: not at all 5. Poor appetite or overeating: not at all 6. Feeling bad about yourself - or that you are a failure or have let yourself or your family down: not at all 7. Trouble concentrating on things, such as reading the newspaper or watching television: not at all 8. Moving or speaking so slowly that other people could have noticed. Or the opposite - being so fidgety or restless that you have been moving around a lot more than usual: not at all 9. Thoughts that you would be better off or of hurting yourself in some way: not at all Total score: 0 Source: Developed by Drs. Jeremy Kearns, Jenny Velazquez, Davion Campo and colleagues, with an educational gerber from [employer]. Thrive Questionnaire Date Thrive assessed: 06/30/25 I am a: Patient What is your living situation today?: I have a steady place to live Within the past 12 months, did the food you bought not last and you didn't have the money to get more?: Often true Within the past 12 months, did you worry whether your food would run out before you got money to buy more?: Often true Do you have trouble paying for medicines?: No Do you have trouble getting transportation to medical appointments?: No Do you have trouble paying your heating and electricity bill?: No Do you have trouble taking care of your child, family member or friend?: No Do you have trouble with day-to-day activities such as bathing, preparing meals, shopping, managing finances, etc.?: I choose not to answer this question Are you currently unemployed and looking for a job?: I choose not to answer this question Are you interested in more education?: Yes Please select the resources that you would like help with: None Currently or been in a relationship where the following occur: I choose not to answer THRIVE Score: 2 AUDIT C Alcohol Use Questionnaire (AUDIT-C) 1. How often do you have a drink containing alcohol?: Never Total Score: 0 VALE-7 AMB Questionnaire VALE-7 Date VALE - 7 assessed: 06/30/25 Feeling nervous, anxious, or on edge: 0 = Not at all Not being able to stop or control worryin = Not at all Worrying too much about different things: 0 = Not at all Trouble relaxin = Not at all Being so restless that it is hard to sit still: 0 = Not at all Becoming easily annoyed or irritable: 0 = Not at all Feeling afraid as if something awful might happen: 0 = Not at all Total VALE-7 score (0-4 normal; 5-9 mild; 10-14 moderate; 15-21 severe): 0 Source: Developed by Drs. Jeremy Kearns, Jenny Velazquez, Davion Campo and colleagues, with an educational gerber from [employer]. Physical exam (Primary Care) Vital Signs: Last Vital Signs Temp 97.5 F 06/30/25 14:55 Pulse 72 06/30/25 14:55 Resp 18 06/30/25 14:55 BP 100/62 06/30/25 14:55 Pulse Ox 95 06/30/25 14:55 Oxygen Delivery Method Room Air 06/30/25 14:55 BMI result Body Mass Index 30.8 Tobacco/Smoking Status: Tobacco use Status Tobacco use date assessed 06/30/25 06/30/25 15:02 Patient Tobacco Use Status Never used Tobacco 06/30/25 15:02 e-Cigarette/Vaping Use Never Used 06/30/25 15:02 PHQ-9: PHQ-9 Score PHQ-9: Total score 0 06/30/25 15:02 Thrive Assessment: Date of Thrive Assessment Date Thrive assessed 06/30/25 06/30/25 15:02 Currently or been in a relationship where the following occur: I choose not to answer Const General: alert; No acute distress Eyes Conjunctivae: conjunctivae normal Resp Auscultation: clear to auscultation bilaterally Cardio Rate: regular rate Rhythm: regular rhythm GI Inspection: Yes normal to inspection Extrem General: Yes normal to inspection and No edema Coding Level of Care Code Est Pt Level 4 (47355) Complex EM visit Add On G2211 Diagnoses Obesity (BMI 30-39.9) E66.9 Fatty liver K76.0 Dizziness R42 Allergic rhinitis J30.9 Assessment & Plan Assessment & Plan (1) Obesity (BMI 30-39.9): Code(s): E66.9 - Obesity, unspecified Category: Medical Plan: Diet and exercise (2) Fatty liver: Code(s): K76.0 - Fatty (change of) liver, not elsewhere classified Category: Medical Plan: Low-fat diet and exercise (3) Dizziness: Code(s): R42 - Dizziness and giddiness Category: Medical Plan: Discussed on keeping well hydrated and eating healthy (4) Allergic rhinitis: Code(s): J30.9 - Allergic rhinitis, unspecified Category: Medical Plan History of Present Illness The patient is a 50-year-old male presenting with dizziness and vertigo. The patient reports experiencing dizziness, particularly when standing up, which improves after a few seconds. He describes the dizziness as a sensation of whirling and has been experiencing it intermittently since the beginning of the week. The dizziness was significant enough to prompt a visit to the emergency room, where no acute issues were found. The patient has a history of hypercholesterolemia, with the last LDL measurement being 106 mg/dL in May 2022. He follows a low-fat diet and engages in regular exercise to manage his cholesterol levels. The patient has been diagnosed with hepatic steatosis, confirmed by an abdominal ultrasound conducted on June 20. He reports no significant liver function abnormalities, and his liver function tests are within normal limits. The patient has a history of lumbar degenerative disc disease, which was noted during the visit. The patient has diverticular disease and was advised to undergo an EGD and colonoscopy for further evaluation. The patient reports symptoms consistent with allergic rhinitis, including a watery nose and sneezing, which he attributes to a carpet in his apartment. He has been living in the apartment for two years and believes the carpet may be contributing to his symptoms. Health Maintenance - Diet: Low-fat diet discussed for cholesterol management - Exercise: Regular exercise recommended - Screening: Advised to undergo EGD and colonoscopy Social History - Housing: Patient has been living in an apartment with a carpet that may be contributing to allergic symptoms. - Diet: Follows a low-fat diet for cholesterol management. - Exercise: Engages in regular physical activity. Review of Systems - Neurological: Reports dizziness, particularly when standing up, improving after a few seconds. Denies headaches. - Respiratory: Denies chest pain, cough, or phlegm production. - Gastrointestinal: Reports constipation, managed with MiraLAX. Denies diarrhea. - Allergic/Immunologic: Reports watery nose and sneezing, possibly related to carpet in apartment. Physical Exam - Cardiovascular: Blood pressure 108/60 mmHg, noted to be on the lower side. - Neurological: No pain reported during examination of the abdomen. - Ears: Presence of earwax, but not obstructive. Results - Labs: Normal blood count, normal electrolytes, normal renal function, low blood sugar, normal liver function, elevated eosinophils at 44.6%. - Imaging: Abdominal ultrasound showing hepatic steatosis. Plan Patient was informed and verbally consented to the use of an ambient scribe for clinic note documentation during this visit. 1. Vertigo The patient is advised to increase fluid intake to manage symptoms of dizziness, particularly when changing positions. Monitoring of blood pressure is recommended to assess for any further episodes of dizziness. 2. Hypercholesterolemia The patient is encouraged to continue a low-fat diet and regular exercise to manage cholesterol levels. No new cholesterol tests were conducted during this visit. 3. Hepatic Steatosis The patient is advised to maintain a healthy diet and monitor liver function regularly. No immediate interventions are required as liver function tests are normal. 4. Diverticular Disease The patient is advised to undergo an EGD and colonoscopy for further evaluation of diverticular disease. 5. Allergic Rhinitis The patient is advised to address potential allergens in the home environment, such as the carpet, which may be contributing to symptoms. Discussion Notes During the visit, we discussed the importance of managing vertigo through increased fluid intake and monitoring blood pressure. We also reviewed the patient's cholesterol management plan, emphasizing the continuation of a low-fat diet and regular exercise. The patient was advised to undergo an EGD and colonoscopy for further evaluation of diverticular disease. We discussed the potential impact of allergens in the home environment on the patient's allergic symptoms and recommended addressing these factors. Patient Instructions - Increase fluid intake to manage dizziness. - Monitor blood pressure regularly and report any significant changes. - Continue following a low-fat diet and regular exercise regimen. - Schedule and undergo an EGD and colonoscopy as advised. - Address potential allergens in the home, such as the carpet, to alleviate allergic symptoms. Orders: Orders Lipid Panel Today E78.00 - Pure hypercholesterolemia, unspecified Hemoglobin A1c Today E78.00 - Pure hypercholesterolemia, unspecified Thyroid Stimulating Hormone Today E78.00 - Pure hypercholesterolemia, unspecified Magnesium Today E78.00 - Pure hypercholesterolemia, unspecified Complete Blood Count Auto Diff Today E78.00 - Pure hypercholesterolemia, unspecified Comprehensive Met. Panel Today E78.00 - Pure hypercholesterolemia, unspecified Free T4 (Free Thyroxine) Today E78.00 - Pure hypercholesterolemia, unspecified UA CC w/rflx Micro + Cult Today E78.00 - Pure hypercholesterolemia, unspecified, R30.0 - Dysuria Vitamin B12 and Folate Today E78.00 - Pure hypercholesterolemia, unspecified
[2025-06-30 14:55] VITALS: BP 100/62; PULSE 72; RESP 18; TEMP 36.4; O2SAT 95; BMI 30.8
[2025-06-30 15:33] VITALS: BP 108/60
== END 2025-06-30 15:42 | disposition home or self-care (01) ==
LOC: HO.HMCH 14:49
PROVIDERS: PCP Internal Medicine; Visit Provider Internal Medicine
DX: R42 Dizziness and giddiness (principal); E66.9 Obesity, unspecified; Z68.30 Body mass index [BMI] 30.0-30.9, adult; K76.0 Fatty (change of) liver, not elsewhere classified; J30.9 Allergic rhinitis, unspecified

== ENCOUNTER → 2025-06-30 14:48 | Outpatient (BNVA) | payer OTHER, SELFPAY | PROVIDERS: PCP Internal Medicine; Visit Provider Internal Medicine | DX: R42 Dizziness and giddiness (principal); E66.9 Obesity, unspecified; K76.0 Fatty (change of) liver, not elsewhere classified; J30.9 Allergic rhinitis, unspecified; E78.00 Pure hypercholesterolemia, unspecified; R30.0 Dysuria | CPT/HCPCS: 96127; 99212 ==

== ENCOUNTER 2025-08-15 09:51 | Outpatient (AMB) | payer OTHER, SELFPAY ==
[2025-08-15 09:57] VITALS: BP 114/76; PULSE 70; TEMP 36.3; O2SAT 97; BMI 31.8
--- NOTE | 2025-08-15 09:57 | A.OFFPC_ITS ---
Vital Signs 08/15/25 09:57 Height 5 ft 9 in Weight 215 lb 4 oz BMI 31.8 BP 114/76 Blood Pressure Location Lt brachial Position Sitting Pulse 70 Pulse Source Pulse Oximeter Temp 97.3 F Temp Source Temporal Artery Scan Pulse Oximetry (%) 97 Oxygen Delivery Method Room Air Intake Visit Reasons: accommodations Allergies No Known Allergies Allergy (Verified 08/15/25 10:00) Tobacco use date assessed: 08/15/25 Dental Screening Dental Screen Date: 08/15/25 Did you have a dental visit in the last 12 months?: No Did you have a dental problem in the last 6 months where you did not have access to dental care?: No Was dental information given to patient?: Patient has dentist HPI accommodations HPI Details asking a letter for remove the rug for the allergies and the tenant asking for notes and on review - allergy problem with last notes [facility] Medical History Low back pain Dyspepsia Generalized abdominal pain Elevated bilirubin Mixed hyperlipidemia Right-sided abdominal pain of unknown etiology Syncope COVID-19 vaccine dose not administered Viral illness Elevated LFTs H/O diverticulitis of colon Lower abdominal pain Erectile dysfunction Lumbar degenerative disc disease Carpal tunnel syndrome Hypercholesterolemia Fatty liver Diverticular disease Renal calculus Obesity (BMI 30-39.9) Vitamin D deficiency Sexually transmitted disease exposure Surgical History History of cholecystectomy Family History Father No problems noted. Mother Pancreatic cancer Social History Housing: Apartment Alcohol intake: never Patient Tobacco Use Status: Never used Tobacco e-Cigarette/Vaping Use: Never Used Second Hand Smoke Exposure: No Current occupational status: unemployed Cognitive needs: No Hearing needs: No Vision needs: Yes Questionnaire PHQ-9 Over the last 2 weeks, how often have you been bothered by any of the following problems? 1. Little interest or pleasure in doing things: not at all 2. Feeling down, depressed, or hopeless: not at all 3. Trouble falling or staying asleep, or sleeping too much: not at all 4. Feeling tired or having little energy: not at all 5. Poor appetite or overeating: not at all 6. Feeling bad about yourself - or that you are a failure or have let yourself or your family down: not at all 7. Trouble concentrating on things, such as reading the newspaper or watching television: not at all 8. Moving or speaking so slowly that other people could have noticed. Or the opposite - being so fidgety or restless that you have been moving around a lot more than usual: not at all 9. Thoughts that you would be better off or of hurting yourself in some way: not at all Total score: 0 Source: Developed by Drs. Jeremy Kearns, Jenny Velazquez, Davion Campo and colleagues, with an educational gerber from [employer]. Thrive Questionnaire Date Thrive assessed: 06/30/25 I am a: Patient What is your living situation today?: I have a steady place to live Within the past 12 months, did the food you bought not last and you didn't have the money to get more?: Often true Within the past 12 months, did you worry whether your food would run out before you got money to buy more?: Often true Do you have trouble paying for medicines?: No Do you have trouble getting transportation to medical appointments?: No Do you have trouble paying your heating and electricity bill?: No Do you have trouble taking care of your child, family member or friend?: No Do you have trouble with day-to-day activities such as bathing, preparing meals, shopping, managing finances, etc.?: I choose not to answer this question Are you currently unemployed and looking for a job?: I choose not to answer this question Are you interested in more education?: Yes Please select the resources that you would like help with: None Currently or been in a relationship where the following occur: I choose not to answer THRIVE Score: 2 AUDIT C Alcohol Use Questionnaire (AUDIT-C) 1. How often do you have a drink containing alcohol?: Never 3. How often do you have six or more drinks on one occasion?: Never Total Score: 0 VALE-7 AMB Questionnaire VALE-7 Date VALE - 7 assessed: 06/30/25 Feeling nervous, anxious, or on edge: 0 = Not at all Not being able to stop or control worryin = Not at all Worrying too much about different things: 0 = Not at all Trouble relaxin = Not at all Being so restless that it is hard to sit still: 0 = Not at all Becoming easily annoyed or irritable: 0 = Not at all Feeling afraid as if something awful might happen: 0 = Not at all Total VALE-7 score (0-4 normal; 5-9 mild; 10-14 moderate; 15-21 severe): 0 Source: Developed by Drs. Jeremy Kearns, Jenny Velazquez, Davion Campo and colleagues, with an educational gerber from [employer]. Physical exam (Primary Care) Vital Signs: Last Vital Signs Temp 97.3 F 08/15/25 09:57 Pulse 70 08/15/25 09:57 BP 114/76 08/15/25 09:57 Pulse Ox 97 08/15/25 09:57 Oxygen Delivery Method Room Air 08/15/25 09:57 BMI result Body Mass Index 31.8 Tobacco/Smoking Status: Tobacco use Status Tobacco use date assessed 08/15/25 08/15/25 10:01 Patient Tobacco Use Status Never used Tobacco 08/15/25 10:01 e-Cigarette/Vaping Use Never Used 08/15/25 10:01 PHQ-9: PHQ-9 Score PHQ-9: Total score 0 08/15/25 10:05 Thrive Assessment: Date of Thrive Assessment Date Thrive assessed 06/30/25 08/15/25 10:01 Currently or been in a relationship where the following occur: I choose not to answer Const General: alert; No acute distress Eyes Conjunctivae: conjunctivae normal Resp Auscultation: clear to auscultation bilaterally Cardio Rate: regular rate Rhythm: regular rhythm GI Inspection: Yes normal to inspection Extrem General: Yes normal to inspection and No edema Coding Level of Care Code Est Pt Level 4 (59834) Complex EM visit Add On G2211 Diagnoses Fatty liver K76.0 Lumbar degenerative disc disease M51.36 Obesity (BMI 30-39.9) E66.9 Allergic rhinitis J30.9 Assessment & Plan Assessment & Plan (1) Fatty liver: Code(s): K76.0 - Fatty (change of) liver, not elsewhere classified Category: Medical Plan: Low-fat diet and exercise (2) Lumbar degenerative disc disease: Code(s): M51.36 - Other intervertebral disc degeneration, lumbar region Category: Medical Plan: Keep active lose the weight (3) Obesity (BMI 30-39.9): Code(s): E66.9 - Obesity, unspecified Category: Medical Plan: Diet and exercise (4) Allergic rhinitis: Code(s): J30.9 - Allergic rhinitis, unspecified Category: Medical Plan: concern on carpet at home which has been part of problem with allergies Plan History of Present Illness The patient is a 50-year-old male presenting for a follow-up visit. He has a history of obesity, hypercholesterolemia, knee osteoarthritis, hepatic steatosis, and lumbar degenerative disc disease. The patient was last seen on June 30, and his last colonoscopy was performed in August 2019. He is scheduled to see gastroenterology in October for a follow-up colon cancer screening. Recent laboratory tests conducted on June 28 showed normal blood count, electrolytes, renal function, blood sugar, and liver function. His last cholesterol test in May 2022 indicated a level of 106 mg/dL. The patient has been advised to maintain a low-fat diet and engage in regular exercise to manage his weight and improve his overall health. Health Maintenance - Colon cancer screening scheduled with gastroenterology in October - Advised to maintain a low-fat diet and regular exercise Social History Review of Systems Physical Exam Results - Labs: Normal blood count, electrolytes, renal function, blood sugar, and liver function as of June 28 - Cholesterol test: Level of 106 mg/dL in May 2022 Plan Patient was informed and verbally consented to the use of an ambient scribe for clinic note documentation during this visit. 1. Obesity The patient is advised to follow a low-fat diet and engage in regular physical activity to manage weight and improve overall health. 2. Hypercholesterolemia The patient should continue monitoring cholesterol levels and adhere to dietary recommendations to maintain cholesterol within normal limits. 3. Knee Osteoarthritis The patient should continue with weight management strategies to alleviate stress on the knees and manage symptoms of osteoarthritis. 4. Hepatic Steatosis The patient is encouraged to maintain a healthy diet and exercise routine to manage hepatic steatosis. 5. Lumbar Degenerative Disc Disease The patient should continue with lifestyle modifications to manage symptoms associated with lumbar degenerative disc disease. 6. Preventative Care The patient is scheduled for a follow-up colon cancer screening with gastroenterology in October. Discussion Notes Patient Instructions - Follow a low-fat diet and engage in regular exercise to manage weight and improve health. - Continue monitoring cholesterol levels and adhere to dietary recommendations. - Attend the scheduled colon cancer screening with gastroenterology in October.
--- OUTSIDE RECORDS SUMMARY | 2025-08-15 11:11 | XMS_ITS | Clinical Summary ---
Author Organization [facility] Address [address] [place] [phone] Phone Care Team Providers Care Labor Specialist Name Role Phone Kasey Goodson MD Primary Care Provider [phone] Allergies No known active allergies Social History [...] FOBT 2022 SIGMOIDOSCOPY 2022 VIRTUAL COLONOSCOPY 2022 INFLUENZA VACCINE (#1) 2025 COVID-19 VACCINE ( - 2024-2 6 season) 2025 SCREENING FOR DIABETES 07/06/2026 07/06/2023 HEPATITIS A [...] topic Medical Devices Not on file Insurance [facility] REPLACEMENT [facility] REPLACEMENT [facility] MED[facility] REPLACEMENT [facility] MEDICARE REPLACEMENT [facility] CARE MEDICARE REPLACEMENT [address] [id number] CARE MEDICARE REPLACEMENT Care Teams Labor Specialist Relationship Specialty Start Date End Date Kasey Goodson MD [address] [place] [phone] PCP - General Internal Medicine 9/4/23 Additional Source Comments The information contained in this document represents components of the legal health record. It is not the complete legal health record.[facility]
== END 2025-08-15 10:54 | disposition home or self-care (01) ==
LOC: HO.HMCH 09:52
PROVIDERS: PCP Internal Medicine; Visit Provider Internal Medicine
DX: K76.0 Fatty (change of) liver, not elsewhere classified (principal); M51.369 Other intervertebral disc degeneration, lumbar region without mention of lumbar back pain or lower extremity pain; E66.9 Obesity, unspecified; Z68.31 Body mass index [BMI] 31.0-31.9, adult; J30.9 Allergic rhinitis, unspecified

== ENCOUNTER → 2025-08-15 09:51 | Outpatient (BNVA) | payer OTHER, SELFPAY | PROVIDERS: PCP Internal Medicine; Visit Provider Internal Medicine | DX: K76.0 Fatty (change of) liver, not elsewhere classified (principal); M51.360 Other intervertebral disc degeneration, lumbar region with discogenic back pain only; E66.9 Obesity, unspecified; J30.9 Allergic rhinitis, unspecified; E78.00 Pure hypercholesterolemia, unspecified | CPT/HCPCS: 96127; 99212 ==